=== PATIENT | male | born 1965 | race American Indian/Alaskan Native ===

== ENCOUNTER 2021-01-28 16:18 | Emergency (ER) | payer OTHER ==
[2021-01-28] MEDS ORDERED: Sodium Chloride 0.9% 1,000 ML IV STA (16:40)
[2021-01-28] MEDS ORDERED: Pantoprazole 80 MG in Sodium Chloride 0.9% 20 ML IVPUSH ONE (16:52)
[2021-01-28] MEDS ORDERED: cefTRIAXone 1 GM in Premix Bag 1 BAG IV ONE ×2 (17:08→19:27)
--- NOTE | 2021-01-28 17:29 | PCM.EKG ---
#1 Interpretation EKG Date: 01/28/21 Time: 16:48 Rhythm: NSR Rate (Beats/Min): 119 [place]: Normal P-Wave: Present QRS: Normal ST-T: Normal QT: Normal Comparison: NA - No Prior EKG EKG Interpretation Comments: Sinus Rhythm
[2021-01-28 18:16] LABS: BLOOD UREA NITROGEN,BUN 8 mg/dL (7.0-18.0); CARBON DIOXIDE,CO2 20.9 mmol/L (21.0-32.0); CHLORIDE,CL 101 mmol/L (98-107); GLUCOSE RANDOM 98 mg/dL (74-106); LIPASE 233 U/L (73-393); POTASSIUM,K 4.1 mmol/L (3.5-5.1); SODIUM,NA 138 mmol/L (136-148)
--- NOTE | 2021-01-28 18:19 | US ---
CLINICAL HISTORY: Abdominal pain FINDINGS: Cirrhotic morphology of the liver. Large volume ascites. No liver lesion seen. The visualized portions of the pancreas appears normal. Sludge in the gallbladder. The gallbladder wall measures 4 mm in thickness. The common bile duct measures 5 mm in size within the [place] hepatis. The kidneys appear symmetric. The right kidney measures 12 cm in length. Kidney appears unremarkable. IMPRESSION: Cirrhotic morphology liver. Large volume ascites. Sludge in the gallbladder. Nonspecific gallbladder wall thickening measuring 4 millimeters Dictated by Vandana Mccarthy MD @ 01/28/2021 6:19:13 PM (Electronically Signed)
[2021-01-28] MEDS ORDERED: Iopamidol 755 MG/ML 500 ML Multipack Bottle IVPUSH STA (18:37)
[2021-01-28] MEDS ORDERED: Sodium Chloride 0.9% 1,000 ML IV ONE (18:45)
[2021-01-28] MEDS ORDERED: LORazepam 2 MG/ML SDV IVPUSH ONE (18:53)
--- NOTE | 2021-01-28 19:15 | EDM.PDOC ---
<Burak Staley - Last Filed: 01/29/21 06:59> ED HPI GENERAL MEDICAL PROBLEM - General Chief Complaint: Respiratory Problem Stated Complaint: HARD TO BREATHE PRESSURE ON HEART Time Seen by Provider: 01/28/21 16:33 - Related Data Allergies Allergy/AdvReac Type Severity Reaction Status Date / Time No Known Allergies Allergy Verified 01/28/21 16:37 Home Meds: Home Meds . [No Known Home Meds] 01/28/21 [History] Course - Re-Assessments/Exams Free Text/Narrative Re-Assessment/Exam: 01/29/21 06:59 Patient lactate went down to 6 but still elevated. His hemoglobin is downtrending from 9.4- to 8.4. Patient still slightly tacky does not really have any withdrawal symptoms. He was guaiac negative earlier from the PAs note however he said he is having dark stool now. Patient still pending transportation. Departure - Departure Disposition: Against Medical Advice 07 Clinical Impression: Acute liver failure, Lactic acidosis - Discharge Information Instructions: Liver Failure Referrals: Zoie Zavala MD [Primary Care Provider] - Forms: ED Department Discharge <Michele Mejia - Last Filed: 01/29/21 12:29> ED HPI GENERAL MEDICAL PROBLEM - History of Present Illness INITIAL COMMENTS - FREE TEXT/NARRATIVE: Patient was signed out to me by Dr. Staley at 7 AM pending transfer. I promptly performed a detailed physical examination and my examination was done after ED treatments were initiated by the signout provider. Patient has been under the care of previous provider up until this point. We did contact the transfer center to evaluate for possible bed placement at 7 AM. At this time as discussed in prior note by APRIL Cunningham there are no beds available. Next update will be around 10 AM. Given the patient has been in the emergency department for over 12 hours at this point I do believe that delaying further care is hindering the patient therefore I did discuss bedside paracentesis with the patient. He was amenable to this plan. PARACENTESIS PROCEDURE NOTE Performed by: Myself Consent: Written consent obtained. Risks and benefits: risks, benefits and alternatives were discussed Consent given by: patient Patient understanding: patient states understanding of the procedure being performed Patient consent: the patient's understanding of the procedure matches consent given Procedure consent: procedure consent matches procedure scheduled Required items: required blood products, implants, devices, and special equipment available Patient identity confirmed: arm band and verbally with patient Time out: Immediately prior to procedure a "time out" was called to verify the correct patient, procedure, equipment, technical support analyst and site/side marked as required. Utilizing ultrasound the best fluid pocket was identified as left lower quadrant Preparation: Patient was prepped and draped in the usual sterile fashion. Local anesthesia used: yes Anesthesia: local infiltration Local anesthetic: lidocaine 1% without epinephrine Anesthetic total: 4 ml Patient sedated: no Patient tolerance: Patient tolerated the procedure well with no immediate complications. Comments: 4 liters removed without complication and studies were sent to lab. Laboratory: Fluid cell count reveals a polymorphonuclear cell count of less than 250 indicating no evidence of SBP. We did send off fluid culture and Gram stain which are currently pending. Patient's repeat lactic acid is 4.1. Given that there is no need for further transfer for large-volume paracentesis given that we completed here in the emergency department I did contact Dr. Harman for admission. He stated that he would come down and evaluate the patient. While awaiting evaluation by Dr. Harman the patient stated that he wanted to leave. The patient was apprised of the potential risks of leaving the hospital AGAINST MEDICAL ADVICE. They include serious complications, permanent disability, and . At the time of my interview with the patient, the patient was alert, oriented, and capable. I urged the patient to return to the hospital as soon as possible to complete their evaluation and treatment. The patient left without paperwork. Patient sisters were at bedside were encouraging patient to stay however patient continued to want to leave AMA. The patients sisters did assist him and the patient left AMA. ED ROS GENERAL - Review of Systems Review Of Systems: See Below ED EXAM, GENERAL - Physical Exam Exam: See Below Departure - Departure Time of Disposition: 12:29 Condition: Fair - Discharge Information *PRESCRIPTION DRUG MONITORING PROGRAM REVIEWED*: No *COPY OF PRESCRIPTION DRUG MONITORING REPORT IN PATIENT RAMAN: No <Valery Cunningham - Last Filed: 01/30/21 21:53> ED HPI GENERAL MEDICAL PROBLEM - General Source of Information: Reports: Patient History Limitations: Reports: No Limitations - History of Present Illness INITIAL COMMENTS - FREE TEXT/NARRATIVE: HISTORY AND PHYSICAL: History of present illness: Patient is a 55-year-old male, with a history of chronic alcohol use, coronary artery disease, who presents emergency room today with concern of abdominal pain/swelling over the past several days. Chills off and on at home but has not checked for a fever and dark stools. Patient states that he does drink approximately 12 drinks/beers daily and states that he does depend on alcohol and does get the shakes if he stops drinking. Patient states his last beverage was last night. Patient states he started noticing his abdominal pain and distention has become more prominent. States that he has not taken anything for his symptoms. Patient states that his abdomen is still bloated it does make it difficult to take deep breaths and feels like it is squishing his lungs according to patient. Patient states he also uses marijuana but denies any other substance use. Patient denies fever, chills, chest pain, or cough. Denies headache, neck stiff ness, change in vision, syncope, or near syncope. Denies nausea, vomiting, diarrhea, constipation, or dysuria. Has not noted any blood in urine or stool. Patient has been eating and drinking appropriately. Review of systems: As per history of present illness and below otherwise all systems reviewed and negative. Past medical history: As per history of present illness and as reviewed below otherwise noncontributory. Surgical history: As per history of present illness and as reviewed below otherwise noncontributory. Social history: See social history for further information Family history: As per history of present illness and as reviewed below otherwise noncontributory. Physical exam: General: Patient is alert, oriented, and in no acute distress. Patient laying comfortably on exam table. Patient is tachycardic 134 on exam and mildly hypertensive 144/98, otherwise vitally stable and reviewed by me. HEENT: Positive scleral icterus .atraumatic, normocephalic, pupils equal and reactive bilaterally, negative for conjunctival pallor, mucous membranes dry, throat clear, neck supple, nontender, trachea midline. No drooling or trismus noted. No meningeal signs. No hot potato voice noted. Lungs: Clear to auscultation, breath sounds equal bilaterally, chest nontender. Heart: S1S2, regular rate and rhythm without overt murmur Abdomen: Abdomen is diffusely tender and distended with ascites. Negative for masses or hepatosplenomegaly. Negative for costovertebral tenderness. Pelvis: Stable nontender. Genitourinary: Deferred. Rectal: Microfilm Technician at bedside, Alana Carpio RN. Hemoccult negative. No obvious rashes, hemorrhoids, or lesions noted. Rectal tone intact. Skin: Jaundiced, otherwise, intact, warm, dry. No lesions or rashes noted. Extremities: Atraumatic, negative for cords or calf pain. Neurovascular unremarkable. Neuro: Awake, alert, oriented. Cranial nerves II through XII unremarkable. Cerebellum unremarkable. Motor and sensory unremarkable throughout. Exam nonfocal. Notes: Patient is a 55-year-old male, with a history of chronic alcohol use and coronary artery disease, who presents emergency room today with concern of worsening abdominal pain and distention/swelling causing the sensation of not being able to take a deep breath over the past several days. Upon arrival to the ED, patient is tachycardic 130s on exam and mildly hypertensive. Patient does not have any evidence for withdrawal at this time and CIWA 0 at this time, however, do anticipate that as the longer patient stays here, expect withdrawal symptoms. Patient also has remarkable abdominal distention and ascites on exam with diffuse tenderness. At this time, will provide patient with Rocephin IV for presumed SBP. Will wait for platelets and INR before consideration for diagnostic paracentesis. Will obtain cardiac evaluation and basic lab work, right upper quadrant ultrasound, abdominal pelvic CT scan and provide fluids. See Dr. Mejia's dictation for specific EKG interpretation. However, sinus tachycardia with rate of 119 without STEMI or acute changes. CBC does show decreased red blood cell count at 3.14, decreased hemoglobin and hematocrit at 9.4 and 28.5 respectively. Patient is significantly thrombocytopenic with a platelet count of 44. Due to this, we will not obtain a diagnostic paracentesis and will treat empirically for SBP. Otherwise mild derangements of CBC unremarkable. INR is also elevated at 1.96. CMP does show carbon dioxide decreased at 20.9, significant elevation of lactic acid at 7.6. Total bilirubin elevated at 5.7 and AST elevation of 89. Lipase within normal limits. Troponin negative. Corrected calcium for albumin is 8.2. Patient's alcohol level today is 140. COVID-19 is negative. Ua clear of infection. Right upper quadrant ultrasound does show cirrhotic morphology of the liver with large volume ascites. Sludge in the gallbladder. Nonspecific gallbladder wall thickening measuring 4 mm. CBD measurement is at 5 mm. Upon reevaluation of patient, he does start to get shaky, HR improved to 115 but does become more hypertensive 173/98. Provide Ativan at this time for presumed alcohol withdrawal. Repeat H&H is stable. Abdominal pelvic CT scan shows cirrhotic liver with diffuse hepatic steatosis. Findings of portal hypertension including recannulization of the umbilical vein, paraesophageal varices, and large amount of ascites. Multiple tiny low attenuated lesions in the liver are too small to characterize. Differential considered would be cysts, regenerative nodules, metastatic disease. Moderate diffuse bladder wall thickening. Correlate with urinalysis. (All incidental findings today of imaging discussed with patient and the importance to have this followed up at a later date with his primary care provider.) I did call and speak to the hospitalist on-call, Dr. Harman, and thoroughly discussed patient's case. Due to the concern of patient's low platelets and elevated INR, he feels that patient requires a large volume paracentesis and due to high risk for bleeding / complications of large-volume paracentesis, does not feel comfortable admitting this patient to our facility and recommending transfer. Due to the difficulty with transferring at this time, I did call the [facility] at [facility] to help in the transfer process and they will return my call for possible accepting facility. 21:30: I did receive a call from the [place] transfer center that all facilities and [place] do not have any beds available. This includes [facility], [facility], [facility], [facility], [facility], and [facility]. They have also contacted all facilities in [place], including [facility], [facility], and multiple other facilities and state that there are no available beds in the state [facility]. They are currently working on getting a bed in [place] and then plan to look for beds in [place] and will call back for further updates. Dr. Staley has assumed care of patient and will follow remaining disposition for patient at 21:40 and made aware of transfer difficulties. Diagnostics: EKG, CBC, CMP, PT/INR, troponin, lipase, lactic acid, blood cultures x2, alcohol level, COVID-19, type and screen, right upper quadrant ultrasound, abdominal pelvic CT scan, Repeat H&H Therapeutics: NS, Rocephin, Protonix, Ativan Impression: Acute liver failure Ascites Thrombocytopenia Normocytic anemia, stable Chronic alcohol use Plan: Definitive disposition and diagnosis as appropriate pending reevaluation and review of above. abdomen Pain Score (Numeric/FACES): 2 Past Medical History HEENT History: Reports: None Cardiovascular History: Reports: RI Respiratory History: Reports: None Gastrointestinal History: Reports: None Genitourinary History: Reports: None Musculoskeletal History: Reports: None Neurological History: Reports: None Psychiatric History: Reports: None Endocrine/Metabolic History: Reports: None Hematologic History: Reports: None Immunologic History: Reports: None Oncologic (Cancer) History: Reports: None Dermatologic History: Reports: None - Infectious Disease History Infectious Disease History: Reports: None - Past Surgical History Head Surgeries/Procedures: Reports: None HEENT Surgical History: Reports: None Cardiovascular Surgical History: Reports: None Respiratory Surgical History: Reports: None GI Surgical History: Reports: None Male Surgical History: Reports: None Endocrine Surgical History: Reports: None Neurological Surgical History: Reports: None Musculoskeletal Surgical History: Reports: None Oncologic Surgical History: Reports: None Dermatological Surgical History: Reports: None Social & Family History - Family History Family Medical History: No Pertinent Family History - Tobacco Use Tobacco Use Status *Q: Never Tobacco User Second Hand Smoke Exposure: No - Caffeine Use Caffeine Use: Reports: None - Alcohol Use Days Per Week of Alcohol Use: 7 Number of Drinks Per Day: 12 Total Drinks Per Week: 84 - Recreational Drug Use Recreational Drug Use: Yes Recreational Drug Type: Reports: Marijuana/Hashish Recreational Drug Use Frequency: Daily ED ROS GENERAL - Review of Systems Review Of Systems: Comprehensive ROS is negative, except as noted in HPI. ED EXAM, GENERAL - Physical Exam Exam: See Below (see dictation) Course - Vital Signs Last Recorded V/S: Last Vital Signs Temp 98.2 F 01/29/21 10:50 Pulse 124 H 01/29/21 10:50 Resp 25 H 01/29/21 10:50 BP 122/68 01/29/21 10:50 Pulse Ox 97 01/29/21 10:50 - Orders/Labs/Meds Labs: Laboratory Tests 01/28/21 01/28/21 01/28/21 Range/Units 16:50 16:55 17:39 WBC 5.40 (4.0-11.0) K/uL RBC 3.14 L (4.50-5.90) M/uL Hgb 9.4 L (13.0-17.0) g/dL Hct 28.5 L (38.0-50.0) % MCV 90.8 (80.0-98.0) fL MCH 29.9 (27.0-32.0) pg MCHC 33.0 (31.0-37.0) g/dL RDW Std Deviation 49.6 (28.0-62.0) fl RDW Coeff of Alex 15 (11.0-15.0) % Plt Count 44 L (150-400) K/uL MPV 10.10 (7.40-12.00) fL Neut % (Auto) 69.9 (48.0-80.0) % Lymph % (Auto) 10.4 L (16.0-40.0) % Ross % (Auto) 17.6 H (0.0-15.0) % Eos % (Auto) 0.4 (0.0-7.0) % Baso % (Auto) 1.7 H (0.0-1.5) % Neut # (Auto) 3.8 (1.4-5.7) K/uL Lymph # (Auto) 0.6 (0.6-2.4) K/uL Ross # (Auto) 1.0 H (0.0-0.8) K/uL Eos # (Auto) 0.0 (0.0-0.7) K/uL Baso # (Auto) 0.1 (0.0-0.1) K/uL Nucleated RBC % 0.0 /100WBC Nucleated RBCs # 0 K/uL INR APTT (18.6-31.3) SEC Fibrinogen (215-411) mg/dL Sodium (136-148) mmol/L Potassium (3.5-5.1) mmol/L Chloride (98-107) mmol/L Carbon Dioxide (21.0-32.0) mmol/L BUN (7.0-18.0) mg/dL Creatinine (0.8-1.3) mg/dL Est Cr Clr Drug Dosing mL/min Estimated GFR (MDRD) ml/min Glucose (74-106) mg/dL Lactic Acid (0.4-2.0) mmol/L Calcium (8.5-10.1) mg/dL Total Bilirubin (0.2-1.0) mg/dL AST (15-37) IU/L ALT (14-63) IU/L Alkaline Phosphatase (46-116) U/L Ammonia (19-54) ug/dL Troponin I < 0.050 (0.000-0.056) ng/mL Total Protein (6.4-8.2) g/dL Albumin (3.4-5.0) g/dL Globulin (2.6-4.0) g/dL Albumin/Globulin Ratio (0.9-1.6) Lipase (73-393) U/L Urine Color Urine Appearance Urine pH (5.0-8.0) Ur Specific [place] (1.001-1.035) Urine Protein (NEGATIVE) mg/dL Urine Glucose (UA) (NEGATIVE) mg/dL Urine Ketones (NEGATIVE) mg/dL Urine Occult Blood (NEGATIVE) Urine Nitrite (NEGATIVE) Urine Bilirubin (NEGATIVE) Urine Urobilinogen (<2.0) EU/dL Ur Leukocyte Esterase (NEGATIVE) Urine RBC (0-2/HPF) Urine WBC (0-5/HPF) Ur Epithelial Cells (NONE-FEW) Urine Bacteria (NEGATIVE) Fluid Type Fluid Color Fluid Appearance Fluid WBC /uL Fluid RBC /uL Fluid Mononuclear Cell % Fl Polymorphonucl Cell % Fluid Glucose mg/dL Fluid Total Protein g/dL Fluid Albumin g/dL Ethyl Alcohol mg/dL SARS-CoV-2 RNA (DAVID) NEGATIVE (NEGATIVE) Blood Type Antibody Screen Crossmatch 01/28/21 01/28/21 01/28/21 Range/Units 17:39 17:39 17:39 WBC (4.0-11.0) K/uL RBC (4.50-5.90) M/uL Hgb (13.0-17.0) g/dL Hct (38.0-50.0) % MCV (80.0-98.0) fL MCH (27.0-32.0) pg MCHC (31.0-37.0) g/dL RDW Std Deviation (28.0-62.0) fl RDW Coeff of Alex (11.0-15.0) % Plt Count (150-400) K/uL MPV (7.40-12.00) fL Neut % (Auto) (48.0-80.0) % Lymph % (Auto) (16.0-40.0) % Ross % (Auto) (0.0-15.0) % Eos % (Auto) (0.0-7.0) % Baso % (Auto) (0.0-1.5) % Neut # (Auto) (1.4-5.7) K/uL Lymph # (Auto) (0.6-2.4) K/uL Ross # (Auto) (0.0-0.8) K/uL Eos # (Auto) (0.0-0.7) K/uL Baso # (Auto) (0.0-0.1) K/uL Nucleated RBC % /100WBC Nucleated RBCs # K/uL INR APTT (18.6-31.3) SEC Fibrinogen (215-411) mg/dL Sodium 138 (136-148) mmol/L Potassium 4.1 (3.5-5.1) mmol/L Chloride 101 (98-107) mmol/L Carbon Dioxide 20.9 L (21.0-32.0) mmol/L BUN 8 (7.0-18.0) mg/dL Creatinine 1.1 (0.8-1.3) mg/dL Est Cr Clr Drug Dosing 80.19 mL/min Estimated GFR (MDRD) > 60.0 ml/min Glucose 98 (74-106) mg/dL Lactic Acid 7.6 H* (0.4-2.0) mmol/L Calcium 7.2 L (8.5-10.1) mg/dL Total Bilirubin 5.7 H (0.2-1.0) mg/dL AST 89 H (15-37) IU/L ALT 24 (14-63) IU/L Alkaline Phosphatase 107 (46-116) U/L Ammonia 37 (19-54) ug/dL Troponin I (0.000-0.056) ng/mL Total Protein 7.1 (6.4-8.2) g/dL Albumin 2.1 L (3.4-5.0) g/dL Globulin 5.0 H (2.6-4.0) g/dL Albumin/Globulin Ratio 0.4 L (0.9-1.6) Lipase 233 (73-393) U/L Urine Color Urine Appearance Urine pH (5.0-8.0) Ur Specific [place] (1.001-1.035) Urine Protein (NEGATIVE) mg/dL Urine Glucose (UA) (NEGATIVE) mg/dL Urine Ketones (NEGATIVE) mg/dL Urine Occult Blood (NEGATIVE) Urine Nitrite (NEGATIVE) Urine Bilirubin (NEGATIVE) Urine Urobilinogen (<2.0) EU/dL Ur Leukocyte Esterase (NEGATIVE) Urine RBC (0-2/HPF) Urine WBC (0-5/HPF) Ur Epithelial Cells (NONE-FEW) Urine Bacteria (NEGATIVE) Fluid Type Fluid Color Fluid Appearance Fluid WBC /uL Fluid RBC /uL Fluid Mononuclear Cell % Fl Polymorphonucl Cell % Fluid Glucose mg/dL Fluid Total Protein g/dL Fluid Albumin g/dL Ethyl Alcohol 140 mg/dL SARS-CoV-2 RNA (DAVID) (NEGATIVE) Blood Type Antibody Screen Crossmatch 01/28/21 01/28/21 01/28/21 Range/Units 17:39 17:45 19:49 WBC (4.0-11.0) K/uL RBC (4.50-5.90) M/uL Hgb (13.0-17.0) g/dL Hct (38.0-50.0) % MCV (80.0-98.0) fL MCH (27.0-32.0) pg MCHC (31.0-37.0) g/dL RDW Std Deviation (28.0-62.0) fl RDW Coeff of Alex (11.0-15.0) % Plt Count (150-400) K/uL MPV (7.40-12.00) fL Neut % (Auto) (48.0-80.0) % Lymph % (Auto) (16.0-40.0) % Ross % (Auto) (0.0-15.0) % Eos % (Auto) (0.0-7.0) % Baso % (Auto) (0.0-1.5) % Neut # (Auto) (1.4-5.7) K/uL Lymph # (Auto) (0.6-2.4) K/uL Ross # (Auto) (0.0-0.8) K/uL Eos # (Auto) (0.0-0.7) K/uL Baso # (Auto) (0.0-0.1) K/uL Nucleated RBC % /100WBC Nucleated RBCs # K/uL INR 1.96 APTT (18.6-31.3) SEC Fibrinogen (215-411) mg/dL Sodium (136-148) mmol/L Potassium (3.5-5.1) mmol/L Chloride (98-107) mmol/L Carbon Dioxide (21.0-32.0) mmol/L BUN (7.0-18.0) mg/dL Creatinine (0.8-1.3) mg/dL Est Cr Clr Drug Dosing mL/min Estimated GFR (MDRD) ml/min Glucose (74-106) mg/dL Lactic Acid (0.4-2.0) mmol/L Calcium (8.5-10.1) mg/dL Total Bilirubin (0.2-1.0) mg/dL AST (15-37) IU/L ALT (14-63) IU/L Alkaline Phosphatase (46-116) U/L Ammonia (19-54) ug/dL Troponin I (0.000-0.056) ng/mL Total Protein (6.4-8.2) g/dL Albumin (3.4-5.0) g/dL Globulin (2.6-4.0) g/dL Albumin/Globulin Ratio (0.9-1.6) Lipase (73-393) U/L Urine Color YELLOW Urine Appearance HAZY Urine pH 6.0 (5.0-8.0) Ur Specific [place] <= 1.005 (1.001-1.035) Urine Protein NEGATIVE (NEGATIVE) mg/dL Urine Glucose (UA) NEGATIVE (NEGATIVE) mg/dL Urine Ketones 15 H (NEGATIVE) mg/dL Urine Occult Blood TRACE-INTACT H (NEGATIVE) Urine Nitrite NEGATIVE (NEGATIVE) Urine Bilirubin NEGATIVE (NEGATIVE) Urine Urobilinogen 0.2 (<2.0) EU/dL Ur Leukocyte Esterase NEGATIVE (NEGATIVE) Urine RBC 0-1 (0-2/HPF) Urine WBC 0-1 (0-5/HPF) Ur Epithelial Cells RARE (NONE-FEW) Urine Bacteria RARE (NEGATIVE) Fluid Type Fluid Color Fluid Appearance Fluid WBC /uL Fluid RBC /uL Fluid Mononuclear Cell % Fl Polymorphonucl Cell % Fluid Glucose mg/dL Fluid Total Protein g/dL Fluid Albumin g/dL Ethyl Alcohol mg/dL SARS-CoV-2 RNA (DAVID) (NEGATIVE) Blood Type A POSITIVE Antibody Screen NEGATIVE Crossmatch See Detail 01/28/21 01/28/21 01/29/21 Range/Units 20:25 22:39 05:32 WBC (4.0-11.0) K/uL RBC (4.50-5.90) M/uL Hgb 9.2 L (13.0-17.0) g/dL Hct 27.4 L (38.0-50.0) % MCV (80.0-98.0) fL MCH (27.0-32.0) pg MCHC (31.0-37.0) g/dL RDW Std Deviation (28.0-62.0) fl RDW Coeff of Alex (11.0-15.0) % Plt Count (150-400) K/uL MPV (7.40-12.00) fL Neut % (Auto) (48.0-80.0) % Lymph % (Auto) (16.0-40.0) % Ross % (Auto) (0.0-15.0) % Eos % (Auto) (0.0-7.0) % Baso % (Auto) (0.0-1.5) % Neut # (Auto) (1.4-5.7) K/uL Lymph # (Auto) (0.6-2.4) K/uL Ross # (Auto) (0.0-0.8) K/uL Eos # (Auto) (0.0-0.7) K/uL Baso # (Auto) (0.0-0.1) K/uL Nucleated RBC % /100WBC Nucleated RBCs # K/uL INR APTT (18.6-31.3) SEC Fibrinogen (215-411) mg/dL Sodium 139 (136-148) mmol/L Potassium 3.7 (3.5-5.1) mmol/L Chloride 104 (98-107) mmol/L Carbon Dioxide 18.8 L (21.0-32.0) mmol/L BUN 7 (7.0-18.0) mg/dL Creatinine 0.9 (0.8-1.3) mg/dL Est Cr Clr Drug Dosing 98.01 mL/min Estimated GFR (MDRD) > 60.0 ml/min Glucose 97 (74-106) mg/dL Lactic Acid 8.1 H* (0.4-2.0) mmol/L Calcium 6.9 L (8.5-10.1) mg/dL Total Bilirubin 4.7 H (0.2-1.0) mg/dL AST 81 H (15-37) IU/L ALT 24 (14-63) IU/L Alkaline Phosphatase 94 (46-116) U/L Ammonia (19-54) ug/dL Troponin I (0.000-0.056) ng/mL Total Protein 6.4 (6.4-8.2) g/dL Albumin 1.9 L (3.4-5.0) g/dL Globulin 4.5 H (2.6-4.0) g/dL Albumin/Globulin Ratio 0.4 L (0.9-1.6) Lipase (73-393) U/L Urine Color Urine Appearance Urine pH (5.0-8.0) Ur Specific [place] (1.001-1.035) Urine Protein (NEGATIVE) mg/dL Urine Glucose (UA) (NEGATIVE) mg/dL Urine Ketones (NEGATIVE) mg/dL Urine Occult Blood (NEGATIVE) Urine Nitrite (NEGATIVE) Urine Bilirubin (NEGATIVE) Urine Urobilinogen (<2.0) EU/dL Ur Leukocyte Esterase (NEGATIVE) Urine RBC (0-2/HPF) Urine WBC (0-5/HPF) Ur Epithelial Cells (NONE-FEW) Urine Bacteria (NEGATIVE) Fluid Type Fluid Color Fluid Appearance Fluid WBC /uL Fluid RBC /uL Fluid Mononuclear Cell % Fl Polymorphonucl Cell % Fluid Glucose mg/dL Fluid Total Protein g/dL Fluid Albumin g/dL Ethyl Alcohol mg/dL SARS-CoV-2 RNA (DAVID) (NEGATIVE) Blood Type Antibody Screen Crossmatch 01/29/21 01/29/21 01/29/21 Range/Units 05:32 06:25 06:25 WBC 5.29 (4.0-11.0) K/uL RBC 2.81 L (4.50-5.90) M/uL Hgb 8.4 L (13.0-17.0) g/dL Hct 25.3 L (38.0-50.0) % MCV 90.0 (80.0-98.0) fL MCH 29.9 (27.0-32.0) pg MCHC 33.2 (31.0-37.0) g/dL RDW Std Deviation 49.6 (28.0-62.0) fl RDW Coeff of Alex 15 (11.0-15.0) % Plt Count 48 L (150-400) K/uL MPV 10.30 (7.40-12.00) fL Neut % (Auto) (48.0-80.0) % Lymph % (Auto) (16.0-40.0) % Ross % (Auto) (0.0-15.0) % Eos % (Auto) (0.0-7.0) % Baso % (Auto) (0.0-1.5) % Neut # (Auto) (1.4-5.7) K/uL Lymph # (Auto) (0.6-2.4) K/uL Ross # (Auto) (0.0-0.8) K/uL Eos # (Auto) (0.0-0.7) K/uL Baso # (Auto) (0.0-0.1) K/uL Nucleated RBC % 0.0 /100WBC Nucleated RBCs # 0 K/uL INR APTT 30.3 (18.6-31.3) SEC Fibrinogen (215-411) mg/dL Sodium (136-148) mmol/L Potassium (3.5-5.1) mmol/L Chloride (98-107) mmol/L Carbon Dioxide (21.0-32.0) mmol/L BUN (7.0-18.0) mg/dL Creatinine (0.8-1.3) mg/dL Est Cr Clr Drug Dosing mL/min Estimated GFR (MDRD) ml/min Glucose (74-106) mg/dL Lactic Acid 6.1 H* (0.4-2.0) mmol/L Calcium (8.5-10.1) mg/dL Total Bilirubin (0.2-1.0) mg/dL AST (15-37) IU/L ALT (14-63) IU/L Alkaline Phosphatase (46-116) U/L Ammonia (19-54) ug/dL Troponin I (0.000-0.056) ng/mL Total Protein (6.4-8.2) g/dL Albumin (3.4-5.0) g/dL Globulin (2.6-4.0) g/dL Albumin/Globulin Ratio (0.9-1.6) Lipase (73-393) U/L Urine Color Urine Appearance Urine pH (5.0-8.0) Ur Specific [place] (1.001-1.035) Urine Protein (NEGATIVE) mg/dL Urine Glucose (UA) (NEGATIVE) mg/dL Urine Ketones (NEGATIVE) mg/dL Urine Occult Blood (NEGATIVE) Urine Nitrite (NEGATIVE) Urine Bilirubin (NEGATIVE) Urine Urobilinogen (<2.0) EU/dL Ur Leukocyte Esterase (NEGATIVE) Urine RBC (0-2/HPF) Urine WBC (0-5/HPF) Ur Epithelial Cells (NONE-FEW) Urine Bacteria (NEGATIVE) Fluid Type Fluid Color Fluid Appearance Fluid WBC /uL Fluid RBC /uL Fluid Mononuclear Cell % Fl Polymorphonucl Cell % Fluid Glucose mg/dL Fluid Total Protein g/dL Fluid Albumin g/dL Ethyl Alcohol mg/dL SARS-CoV-2 RNA (DAVID) (NEGATIVE) Blood Type Antibody Screen Crossmatch 01/29/21 01/29/21 01/29/21 Range/Units 06:25 09:15 09:15 WBC (4.0-11.0) K/uL RBC (4.50-5.90) M/uL Hgb (13.0-17.0) g/dL Hct (38.0-50.0) % MCV (80.0-98.0) fL MCH (27.0-32.0) pg MCHC (31.0-37.0) g/dL RDW Std Deviation (28.0-62.0) fl RDW Coeff of Alex (11.0-15.0) % Plt Count (150-400) K/uL MPV (7.40-12.00) fL Neut % (Auto) (48.0-80.0) % Lymph % (Auto) (16.0-40.0) % Ross % (Auto) (0.0-15.0) % Eos % (Auto) (0.0-7.0) % Baso % (Auto) (0.0-1.5) % Neut # (Auto) (1.4-5.7) K/uL Lymph # (Auto) (0.6-2.4) K/uL Ross # (Auto) (0.0-0.8) K/uL Eos # (Auto) (0.0-0.7) K/uL Baso # (Auto) (0.0-0.1) K/uL Nucleated RBC % /100WBC Nucleated RBCs # K/uL INR APTT (18.6-31.3) SEC Fibrinogen 141 L (215-411) mg/dL Sodium (136-148) mmol/L Potassium (3.5-5.1) mmol/L Chloride (98-107) mmol/L Carbon Dioxide (21.0-32.0) mmol/L BUN (7.0-18.0) mg/dL Creatinine (0.8-1.3) mg/dL Est Cr Clr Drug Dosing mL/min Estimated GFR (MDRD) ml/min Glucose (74-106) mg/dL Lactic Acid (0.4-2.0) mmol/L Calcium (8.5-10.1) mg/dL Total Bilirubin (0.2-1.0) mg/dL AST (15-37) IU/L ALT (14-63) IU/L Alkaline Phosphatase (46-116) U/L Ammonia (19-54) ug/dL Troponin I (0.000-0.056) ng/mL Total Protein (6.4-8.2) g/dL Albumin (3.4-5.0) g/dL Globulin (2.6-4.0) g/dL Albumin/Globulin Ratio (0.9-1.6) Lipase (73-393) U/L Urine Color Urine Appearance Urine pH (5.0-8.0) Ur Specific [place] (1.001-1.035) Urine Protein (NEGATIVE) mg/dL Urine Glucose (UA) (NEGATIVE) mg/dL Urine Ketones (NEGATIVE) mg/dL Urine Occult Blood (NEGATIVE) Urine Nitrite (NEGATIVE) Urine Bilirubin (NEGATIVE) Urine Urobilinogen (<2.0) EU/dL Ur Leukocyte Esterase (NEGATIVE) Urine RBC (0-2/HPF) Urine WBC (0-5/HPF) Ur Epithelial Cells (NONE-FEW) Urine Bacteria (NEGATIVE) Fluid Type PER PER Fluid Color YELLOW Fluid Appearance CLEAR Fluid WBC 91 /uL Fluid RBC < 3000 /uL Fluid Mononuclear Cell 66 % Fl Polymorphonucl Cell 34 % Fluid Glucose 108 mg/dL Fluid Total Protein 1.0 g/dL Fluid Albumin 0.3 g/dL Ethyl Alcohol mg/dL SARS-CoV-2 RNA (DAVID) (NEGATIVE) Blood Type Antibody Screen Crossmatch 01/29/21 Range/Units 10:30 WBC (4.0-11.0) K/uL RBC (4.50-5.90) M/uL Hgb (13.0-17.0) g/dL Hct (38.0-50.0) % MCV (80.0-98.0) fL MCH (27.0-32.0) pg MCHC (31.0-37.0) g/dL RDW Std Deviation (28.0-62.0) fl RDW Coeff of Alex (11.0-15.0) % Plt Count (150-400) K/uL MPV (7.40-12.00) fL Neut % (Auto) (48.0-80.0) % Lymph % (Auto) (16.0-40.0) % Ross % (Auto) (0.0-15.0) % Eos % (Auto) (0.0-7.0) % Baso % (Auto) (0.0-1.5) % Neut # (Auto) (1.4-5.7) K/uL Lymph # (Auto) (0.6-2.4) K/uL Ross # (Auto) (0.0-0.8) K/uL Eos # (Auto) (0.0-0.7) K/uL Baso # (Auto) (0.0-0.1) K/uL Nucleated RBC % /100WBC Nucleated RBCs # K/uL INR APTT (18.6-31.3) SEC Fibrinogen (215-411) mg/dL Sodium (136-148) mmol/L Potassium (3.5-5.1) mmol/L Chloride (98-107) mmol/L Carbon Dioxide (21.0-32.0) mmol/L BUN (7.0-18.0) mg/dL Creatinine (0.8-1.3) mg/dL Est Cr Clr Drug Dosing mL/min Estimated GFR (MDRD) ml/min Glucose (74-106) mg/dL Lactic Acid 4.1 H* (0.4-2.0) mmol/L Calcium (8.5-10.1) mg/dL Total Bilirubin (0.2-1.0) mg/dL AST (15-37) IU/L ALT (14-63) IU/L Alkaline Phosphatase (46-116) U/L Ammonia (19-54) ug/dL Troponin I (0.000-0.056) ng/mL Total Protein (6.4-8.2) g/dL Albumin (3.4-5.0) g/dL Globulin (2.6-4.0) g/dL Albumin/Globulin Ratio (0.9-1.6) Lipase (73-393) U/L Urine Color Urine Appearance Urine pH (5.0-8.0) Ur Specific [place] (1.001-1.035) Urine Protein (NEGATIVE) mg/dL Urine Glucose (UA) (NEGATIVE) mg/dL Urine Ketones (NEGATIVE) mg/dL Urine Occult Blood (NEGATIVE) Urine Nitrite (NEGATIVE) Urine Bilirubin (NEGATIVE) Urine Urobilinogen (<2.0) EU/dL Ur Leukocyte Esterase (NEGATIVE) Urine RBC (0-2/HPF) Urine WBC (0-5/HPF) Ur Epithelial Cells (NONE-FEW) Urine Bacteria (NEGATIVE) Fluid Type Fluid Color Fluid Appearance Fluid WBC /uL Fluid RBC /uL Fluid Mononuclear Cell % Fl Polymorphonucl Cell % Fluid Glucose mg/dL Fluid Total Protein g/dL Fluid Albumin g/dL Ethyl Alcohol mg/dL SARS-CoV-2 RNA (DAVID) (NEGATIVE) Blood Type Antibody Screen Crossmatch Meds: Medications Discontinued Medications Generic Name Dose Route Start Last Admin Trade Name Mirzaq PRN Reason Stop Dose Admin Calcium Gluconate 1 gm 01/29/21 06:30 01/29/21 06:46 Calcium Gluconate 10% 1 Gm/10 Ml Sdv IVPUSH 01/29/21 06:31 1 gm ONETIME ONE Administration Chlordiazepoxide HCl 50 mg 01/28/21 22:48 01/28/21 23:30 Chlordiazepoxide 25 Mg Cap PO 01/28/21 22:49 50 mg ONETIME ONE Administration Sodium Chloride 1,000 mls @ 999 mls/hr 01/28/21 16:40 01/28/21 16:54 Normal Saline IV 01/28/21 17:40 999 mls/hr STAT STA Administration Pantoprazole Sodium 80 mg/ 20 mls @ 420 mls/hr 01/28/21 16:52 01/28/21 17:40 Sodium Chloride IVPUSH 01/28/21 16:54 420 mls/hr ONETIME ONE Administration Ceftriaxone Sodium/Dextrose 1 50 mls @ 100 mls/hr 01/28/21 17:08 01/28/21 17:51 gm/ Premix IV 01/28/21 17:37 100 mls/hr ONETIME ONE Administration Sodium Chloride 1,000 mls @ 999 mls/hr 01/28/21 18:45 01/28/21 18:49 Normal Saline IV 01/28/21 19:45 999 mls/hr STAT ONE Administration Ceftriaxone Sodium/Dextrose 1 50 mls @ 100 mls/hr 01/28/21 19:27 01/28/21 20:11 gm/ Premix IV 01/28/21 19:56 100 mls/hr ONETIME ONE Administration Sodium Chloride 1,000 mls @ 1,000 mls/hr 01/29/21 02:24 01/29/21 02:37 Normal Saline IV 01/29/21 03:23 1,000 mls/hr .Bolus ONE Administration Sodium Chloride 1,000 mls @ 125 mls/hr 01/29/21 07:45 01/29/21 07:57 Normal Saline IV 125 mls/hr ASDIRECTED DAFNE Administration Iopamidol 100 ml 01/28/21 18:37 01/28/21 18:37 Iopamidol 755 Mg/Ml 500 Ml Multipack Bottle IVPUSH 01/28/21 18:38 100 ml ONETIME STA Administration Lorazepam 2 mg 01/28/21 18:53 01/28/21 19:05 Lorazepam 2 Mg/Ml Sdv IVPUSH 01/28/21 18:54 2 mg ONETIME ONE Administration Lorazepam 2 mg 01/29/21 02:30 01/29/21 02:37 Lorazepam 2 Mg/Ml Sdv IVPUSH 01/29/21 02:31 2 mg ONETIME ONE Administration Lorazepam 2 mg 01/29/21 09:54 01/29/21 10:11 Lorazepam 2 Mg/Ml Sdv IVPUSH 01/29/21 09:55 2 mg ONETIME ONE Administration Sepsis Event Note (ED) - Evaluation Sepsis Screening Result: No Definite Risk
--- NOTE | 2021-01-28 19:43 | CT ---
INDICATION: Abdominal pain. TECHNIQUE: CT of the abdomen and pelvis with 100 cc Isovue 370 IV contrast. Coronal and sagittal reconstructions. COMPARISON: Abdominal ultrasound 01/28/2021. FINDINGS: Cirrhotic configuration of the liver. Diffuse hepatic steatosis. There are multiple tiny low-attenuation lesions in the liver which are too small to characterize. Recanalization of the umbilical vein and paraesophageal varices. Hepatic and portal veins are patent. Probable sludge in the gallbladder. No biliary dilation. Normal spleen size. The pancreas and adrenal glands are negative. Symmetric enhancement of the kidneys. No hydronephrosis or ureteral dilation. No obstructing urinary calculi. Moderate diffuse bladder wall thickening. The prostate gland is normal in appearance. No bowel dilation. Negative appendix. No intraperitoneal free air. Large amount of ascites throughout the abdomen and pelvis. Mild diffuse body wall edema. No lymphadenopathy. Degenerative changes of the spine. Chronic appearing anterior wedging of L1. The lung bases are clear. IMPRESSION: 1. Cirrhotic liver with diffuse hepatic steatosis. 2. Findings of portal hypertension including recanalization of the umbilical vein, paraesophageal varices, and large amount of ascites. 3. Multiple tiny low-attenuation lesions in the liver are too small to characterize. Differential considerations would include cysts, regenerative nodules, or metastatic disease. This could be further evaluated with contrast enhanced MRI. 4. Moderate diffuse bladder wall thickening. Correlate with urinalysis. Please note that all CT scans at this facility use dose modulation, iterative reconstruction, and/or weight-based dosing when appropriate to reduce radiation dose to as low as reasonably achievable. Dictated by Lizeth Souza MD @ 01/28/2021 7:41:31 PM (Electronically Signed)
[2021-01-28] MEDS ORDERED: chlordiazePOXIDE 25 MG Cap PO ONE (22:48)
[2021-01-29] MEDS ORDERED: Sodium Chloride 0.9% 1,000 ML IV ONE (02:24)
[2021-01-29] MEDS ORDERED: LORazepam 2 MG/ML SDV IVPUSH ONE ×2 (02:30→09:54)
[2021-01-29 06:26] LABS: BLOOD UREA NITROGEN,BUN 7 mg/dL (7.0-18.0); CARBON DIOXIDE,CO2 18.8 mmol/L (21.0-32.0); CHLORIDE,CL 104 mmol/L (98-107); GLUCOSE RANDOM 97 mg/dL (74-106); POTASSIUM,K 3.7 mmol/L (3.5-5.1); SODIUM,NA 139 mmol/L (136-148)
[2021-01-29] MEDS ORDERED: Calcium Gluconate 10% 1 GM/10 ML SDV IVPUSH ONE (06:30)
[2021-01-29] MEDS ORDERED: Sodium Chloride 0.9% 1,000 ML IV SCH (07:45)
== END 2021-01-29 12:10 | disposition left against medical advice (07) ==
LOC: MW.ED 16:18
DX: R18.8 Other ascites (principal); K72.00 Acute and subacute hepatic failure without coma; D69.6 Thrombocytopenia, unspecified; F10.20 Alcohol dependence, uncomplicated; E87.2 Acidosis; I25.2 Old myocardial infarction; Y90.6 Blood alcohol level of 120-199 mg/100 ml; Z20.822 Contact with and (suspected) exposure to COVID-19
CPT/HCPCS: 36415; 36430; 49083; 74177; 76705; 80053; 80307; 81001; 82140; 82945; 83605; 83690; 84157; 84484; 85014; 85018; 85025; 85027; 85384; 85610; 85730; 86850; 86900; 86901; 86920; 86921; 86922; 87040; 87070; 87075; 87205; 87635; 89050; 93005; 96365; 96375; 96376; 99284; A9270; C9113; J0610; J0696; J2060; J7030; P9016; Q9967; U0002

== ENCOUNTER 2021-02-20 13:21 | Emergency (ER) | payer OTHER ==
[2021-02-20] MEDS ORDERED: Sodium Chloride 0.9% 10 ML Syringe FLUSH PRN (13:43)
[2021-02-20] MEDS ORDERED: Sodium Chloride 0.9% 2.5 ML Syringe FLUSH PRN (13:43)
--- NOTE | 2021-02-20 14:14 | EDM.PDOC ---
ED HPI GENERAL MEDICAL PROBLEM - General Chief Complaint: Abdominal Pain Stated Complaint: STOMACH PAIN Time Seen by Provider: 02/20/21 13:29 - History of Present Illness INITIAL COMMENTS - FREE TEXT/NARRATIVE: History of present illness: [] The patient complains of abdominal distention which causes him shortness of breath. He says he has had it for 2-1/2 weeks. The patient admits that he is frustrated and angry. He says the hospital and medical care personnel will do anything for him. He says "they" have scheduled a liver biopsy and are scheduled to do a paracentesis. He cannot tell me who "they" are. He says "Lasha" told him to go to [facility] because they were the only people I could do anything form so he went there today. They told him they could not do anything for him and sent him to the emergency department. He does say that this Dr. Simpson is in [place]. He says he has been seen there. He says a week ago he had a paracentesis. Review of his records here reveal that he has cirrhosis of the liver and had a lactic acidosis with liver failure on the 12th of this month. Paracentesis was done at that time. He had some degree of relief and while awaiting transfer to a facility that could more thoroughly evaluate his gastrointestinal problem with his liver disease he signed AGAINST MEDICAL ADVICE and left our department. Review of systems: As per history of present illness and below otherwise all systems reviewed and negative. Past medical history: As per history of present illness and as reviewed below otherwise noncontributory. Surgical history: As per history of present illness and as reviewed below otherwise noncontributory. Social history: No reported history of drug or alcohol abuse. Family history: As per history of present illness and as reviewed below otherwise non contributory. Physical exam: Constitutional - well developed, well-nourished and in no acute distress HEENT - normocephalic, no evidence of trauma - external nose and mouth normal - no mass in neck and no JVD - mucosae moist EYES - full EOM, PERRL, icterus noted.- no evidence of inflammation, injection, or drainage Respiratory - no respiratory distress, equal bilateral expansion, lungs clear to auscultation and no abnormal lung sounds Cardiovascular - Regular Rhythm with S1 and S2 appreciated and no murmur, gallop or rub. GI - abdomen firmly distended but not terribly tender. He has caput medusa. Musculoskeletal no gross deformity of long bones or joints - no tenderness, swelling or edema Neurologic - Alert and oriented times four - CN II-XII grossly intact - motor sensory and coordination symmetrically normal Psychiatric -normal thought content but patient is angry with appropriate affect for the circumstances. Hematologic - No petechiae or purpura - mucosa appropriate color and sclera not pale - normal nail bed color and refill Integument - no rash or evidence of trauma - normal turgor Diagnostics: [] Therapeutics: [] Impression: [] Plan: [] Definitive disposition and diagnosis as appropriate pending reevaluation and review of above. abdomen Pain Score (Numeric/FACES): 8 - Related Data Allergies Allergy/AdvReac Type Severity Reaction Status Date / Time No Known Allergies Allergy Verified 02/20/21 13:38 Home Meds: Home Meds . [No Known Home Meds] 01/28/21 [History] Past Medical History HEENT History: Reports: None Cardiovascular History: Reports: MS Respiratory History: Reports: None Gastrointestinal History: Reports: None Genitourinary History: Reports: None Musculoskeletal History: Reports: None Neurological History: Reports: None Psychiatric History: Reports: None Endocrine/Metabolic History: Reports: None Hematologic History: Reports: None Immunologic History: Reports: None Oncologic (Cancer) History: Reports: None Dermatologic History: Reports: None - Infectious Disease History Infectious Disease History: Reports: None - Past Surgical History Head Surgeries/Procedures: Reports: None HEENT Surgical History: Reports: None Cardiovascular Surgical History: Reports: None Respiratory Surgical History: Reports: None GI Surgical History: Reports: None Male Surgical History: Reports: None Endocrine Surgical History: Reports: None Neurological Surgical History: Reports: None Musculoskeletal Surgical History: Reports: None Oncologic Surgical History: Reports: None Dermatological Surgical History: Reports: None Social & Family History - Family History Family Medical History: No Pertinent Family History - Caffeine Use Caffeine Use: Reports: None - Recreational Drug Use Recreational Drug Use: No ED ROS GENERAL - Review of Systems Review Of Systems: Comprehensive ROS is negative, except as noted in HPI. ED EXAM, GENERAL - Physical Exam Exam: See Below Free Text/Narrative:: My physical exam is in the HPI Course - Vital Signs Text/Narrative:: 1525 hrs. discussed with he said that the patient will come back to very light he will do the paracentesis and arrange the biopsy. Last Recorded V/S: Last Vital Signs Temp 36.6 C 02/20/21 13:34 Pulse 100 02/20/21 14:08 Resp 20 02/20/21 13:34 BP 126/88 02/20/21 14:08 Pulse Ox 97 02/20/21 14:08 - Orders/Labs/Meds Orders: Active Orders 24 hr Category Date Time Status Sodium Chloride 0.9% [Saline Flush] Med 02/20/21 13:43 Active 10 ml FLUSH ASDIRECTED PRN Sodium Chloride 0.9% [Saline Flush] Med 02/20/21 13:43 Active 2.5 ml FLUSH ASDIRECTED PRN Saline Lock Insert [OM.PC] Stat Oth 02/20/21 13:43 Ordered Medication Orders Sodium Chloride (Sodium Chloride 0.9% 10 Ml Syringe) 10 ml FLUSH ASDIRECTED PRN PRN Reason: Keep Vein Open Last Admin: 02/20/21 13:45 Dose: 10 ml Documented by: LEXIE Sodium Chloride (Sodium Chloride 0.9% 2.5 Ml Syringe) 2.5 ml FLUSH ASDIRECTED PRN PRN Reason: Keep Vein Open Last Admin: 02/20/21 13:45 Dose: 2.5 ml Documented by: LEXIE Labs: Laboratory Tests 02/20/21 02/20/21 02/20/21 Range/Units 13:40 13:40 13:40 WBC 8.82 (4.0-11.0) K/uL RBC 3.55 L (4.50-5.90) M/uL Hgb 11.2 L (13.0-17.0) g/dL Hct 32.0 L (38.0-50.0) % MCV 90.1 (80.0-98.0) fL MCH 31.5 (27.0-32.0) pg MCHC 35.0 (31.0-37.0) g/dL RDW Std Deviation 69.3 H (28.0-62.0) fl RDW Coeff of Alex 21 H (11.0-15.0) % Plt Count 133 L (150-400) K/uL MPV 8.60 (7.40-12.00) fL Neut % (Auto) 70.0 (48.0-80.0) % Lymph % (Auto) 12.7 L (16.0-40.0) % [place] % (Auto) 12.5 (0.0-15.0) % Eos % (Auto) 3.4 (0.0-7.0) % Baso % (Auto) 1.4 (0.0-1.5) % Neut # (Auto) 6.2 H (1.4-5.7) K/uL Lymph # (Auto) 1.1 (0.6-2.4) K/uL [place] # (Auto) 1.1 H (0.0-0.8) K/uL Eos # (Auto) 0.3 (0.0-0.7) K/uL Baso # (Auto) 0.1 (0.0-0.1) K/uL Nucleated RBC % 0.0 /100WBC Nucleated RBCs # 0 K/uL INR 1.65 APTT 27.0 (18.6-31.3) SEC Sodium 130 L (136-148) mmol/L Potassium 4.8 (3.5-5.1) mmol/L Chloride 98 (98-107) mmol/L Carbon Dioxide 24.7 (21.0-32.0) mmol/L BUN 14 (7.0-18.0) mg/dL Creatinine 1.2 (0.8-1.3) mg/dL Est Cr Clr Drug Dosing 73.51 mL/min Estimated GFR (MDRD) > 60.0 ml/min Glucose 134 H (74-106) mg/dL Calcium 8.1 L (8.5-10.1) mg/dL Total Bilirubin 5.9 H (0.2-1.0) mg/dL AST 94 H (15-37) IU/L ALT 48 (14-63) IU/L Alkaline Phosphatase 112 (46-116) U/L Total Protein 7.7 (6.4-8.2) g/dL Albumin 2.2 L (3.4-5.0) g/dL Globulin 5.5 H (2.6-4.0) g/dL Albumin/Globulin Ratio 0.4 L (0.9-1.6) Lipase 426 H (73-393) U/L Meds: Medications Generic Name Dose Route Start Last Admin Trade Name Bashir PRN Reason Stop Dose Admin Sodium Chloride 10 ml 02/20/21 13:43 02/20/21 13:45 Sodium Chloride 0.9% 10 Ml Syringe FLUSH 10 ml ASDIRECTED PRN Administration Keep Vein Open Sodium Chloride 2.5 ml 02/20/21 13:43 02/20/21 13:45 Sodium Chloride 0.9% 2.5 Ml Syringe FLUSH 2.5 ml ASDIRECTED PRN Administration Keep Vein Open - Re-Assessments/Exams Free Text/Narrative Re-Assessment/Exam: 02/20/21 14:13 Called for like clinic as a first step in trying to reconstruct the sequence of events since he was seen here on the . 02/20/21 14:23 I contacted [facility] and in their emergency room the emergency physician said he saw the patient on the and his ammonia level was normal. He arrange for paracentesis. That was done on the by who planned to follow the patient at the clinic in [place]. The patient had 50 g of albumen but the total fluid withdrawn is not stated in the note. 02/20/21 14:50 Randi is not at 72 nor is he at the very light [facility] today. Departure - Departure Time of Disposition: 15:26 Disposition: Home, Self-Care 01 Condition: Good Clinical Impression: Abdominal pain, Ascites - Discharge Information Instructions: Abdominal Pain, Adult, [id number] Referrals: PCP,None [Primary Care Provider] - Hong Garcia MD [Ordering Only Provider] - Forms: ED Department Discharge Additional Instructions: told me on the phone just now that he will be at the [facility] until 5 PM and will drain the fluid from your belly and make further arrangements. [facility] [address] [place] [id number] [facility] [address] [place] [address] The following information is given to patients seen in the emergency department who are being discharged to home. This information is to outline your options for follow-up care. We provide all patients seen in our emergency department with a follow-up referral. The need for follow-up, as well as the timing and circumstances, are variable depending upon the specifics of your emergency department visit. If you don't have a primary care physician on staff, we will provide you with a referral. We always advise you to contact your personal physician following an emergency department visit to inform them of the circumstance of the visit and for follow-up with them and/or the need for any referrals to a consulting specialist. The emergency department will also refer you to a specialist when appropriate. This referral assures that you have the opportunity for follow-up care with a specialist. All of these measure are taken in an effort to provide you with optimal care, which includes your follow-up. Under all circumstances we always encourage you to contact your private physician who remains a resource for coordinating your care. When calling for follow-up care, please make the office aware that this follow-up is from your recent emergency room visit. If for any reason you are refused follow-up, please contact the [facility] Emergency Department at and asked to speak to the emergency department charge nurse. Sepsis Event Note (ED) - Evaluation Sepsis Screening Result: No Definite Risk - Focused Exam Vital Signs: Vital Signs Temp Pulse Resp BP Pulse Ox 02/20/21 14:08 100 126/88 97 02/20/21 13:34 36.6 C 112 H 20 129/83 98 - My Orders Last 24 Hours: My Active Orders 02/20/21 13:43 Sodium Chloride 0.9% [Saline Flush] 10 ml FLUSH ASDIRECTED PRN Sodium Chloride 0.9% [Saline Flush] 2.5 ml FLUSH ASDIRECTED PRN Saline Lock Insert [OM.PC] Stat - Assessment/Plan Last 24 Hours: My Active Orders 02/20/21 13:43 Sodium Chloride 0.9% [Saline Flush] 10 ml FLUSH ASDIRECTED PRN Sodium Chloride 0.9% [Saline Flush] 2.5 ml FLUSH ASDIRECTED PRN Saline Lock Insert [OM.PC] Stat
[2021-02-20 14:27] LABS: BLOOD UREA NITROGEN,BUN 14 mg/dL (7.0-18.0); CARBON DIOXIDE,CO2 24.7 mmol/L (21.0-32.0); CHLORIDE,CL 98 mmol/L (98-107); GLUCOSE RANDOM 134 mg/dL (74-106); LIPASE 426 U/L (73-393); POTASSIUM,K 4.8 mmol/L (3.5-5.1); SODIUM,NA 130 mmol/L (136-148)
== END 2021-02-20 15:54 | disposition home or self-care (01) ==
LOC: MW.ED 13:21
DX: R18.8 Other ascites (principal); I25.2 Old myocardial infarction
CPT/HCPCS: 36415; 80053; 83690; 85025; 85610; 85730; 99284

== ENCOUNTER 2021-03-04 01:07 | Emergency (ER) | payer OTHER ==
[2021-03-04] MEDS ORDERED: Sodium Chloride 0.9% 2.5 ML Syringe FLUSH PRN (01:24)
[2021-03-04] MEDS ORDERED: Ondansetron 4 MG/2 ML SDV IVPUSH ONE ×2 (01:24→04:47)
[2021-03-04] MEDS ORDERED: Sodium Chloride 0.9% 10 ML Syringe FLUSH PRN (01:24)
[2021-03-04] MEDS ORDERED: Octreotide 50 MCG/1 ML Amp IVPUSH ONE (01:28)
[2021-03-04] MEDS ORDERED: Octreotide 500 MCG in Sodium Chloride 0.9% 495 ML IV SCH ×3 (01:30→11:45)
[2021-03-04 01:49] LABS: BLOOD UREA NITROGEN,BUN 34 mg/dL (7.0-18.0); CARBON DIOXIDE,CO2 18.7 mmol/L (21.0-32.0); CHLORIDE,CL 98 mmol/L (98-107); GLUCOSE RANDOM 128 mg/dL (74-106); LIPASE 466 U/L (73-393); POTASSIUM,K 4.6 mmol/L (3.5-5.1); SODIUM,NA 129 mmol/L (136-148)
--- NOTE | 2021-03-04 02:00 | EDM.PDOC ---
<David Elder - Last Filed: 03/04/21 06:21> ED HPI GENERAL MEDICAL PROBLEM - General Chief Complaint: Abdominal Pain Stated Complaint: LIVER FAILURE Time Seen by Provider: 03/04/21 01:11 Source of Information: Reports: Patient, Family History Limitations: Reports: No Limitations - History of Present Illness INITIAL COMMENTS - FREE TEXT/NARRATIVE: 55-year-old male with history of chronic alcohol abuse, cirrhosis, portal hypertension, ascites, CAD was brought in by EMS from his home [place] after family called for abdominal distention and vomiting blood 1 hour ago. He was brought in with blood around his mouth. He also notes rectal bleeding over the past week. He was assessed here on 01/28 and had 4L taken out by paracentesis in the ED, he then signed out AGAINST MEDICAL ADVICE. HIs last alcohol drink was 8 weeks ago. ROS: A 10-point review of systems, other than pertinent positives and negatives as stated per HPI, is otherwise negative Past medical history: No additional pertinent history Past Surgical history: No additional pertinent history Social history: No additional pertinent history Family history: No additional pertinent history PHYSICAL EXAM General: AOx4, GCS = 15, angry and agitated, mild distress Skin: pale, caput medusa HEENT: dry mucous membrane, fresh blood around his mouth. Scleral icterus. Neck: supple, no meningismus, no Kernig or Brudzinski Cardiac: S1S2 tachycardia Respiratory: CTAB, no crackles or rales, no wheezing Abdomen: Soft, nontender, tense and distended Back: nontender Musculoskeletal: NVI distally, no deformity Neuro: No focal deficits Abdomen Pain Score (Numeric/FACES): 5 - Related Data Allergies Allergy/AdvReac Type Severity Reaction Status Date / Time No Known Allergies Allergy Verified 03/04/21 01:16 Home Meds: Home Meds . [No Known Home Meds] 01/28/21 [History] Past Medical History HEENT History: Reports: None Cardiovascular History: Reports: AL Respiratory History: Reports: None Gastrointestinal History: Reports: None Other Gastrointestinal History: liver failure Genitourinary History: Reports: None Musculoskeletal History: Reports: None Neurological History: Reports: None Psychiatric History: Reports: None Endocrine/Metabolic History: Reports: None Hematologic History: Reports: None Immunologic History: Reports: None Oncologic (Cancer) History: Reports: None Dermatologic History: Reports: None - Infectious Disease History Infectious Disease History: Reports: None - Past Surgical History Head Surgeries/Procedures: Reports: None HEENT Surgical History: Reports: None Cardiovascular Surgical History: Reports: None Respiratory Surgical History: Reports: None GI Surgical History: Reports: None Male Surgical History: Reports: None Endocrine Surgical History: Reports: None Neurological Surgical History: Reports: None Musculoskeletal Surgical History: Reports: None Oncologic Surgical History: Reports: None Dermatological Surgical History: Reports: None Social & Family History - Family History Family Medical History: No Pertinent Family History - Tobacco Use Tobacco Use Status *Q: Current Every Day Tobacco User Years of Tobacco use: 25 Packs/Tins Daily: 0.1 - Caffeine Use Caffeine Use: Reports: None - Recreational Drug Use Recreational Drug Use: Yes Recreational Drug Type: Reports: Marijuana/Hashish ED ROS GENERAL - Review of Systems Review Of Systems: See Below (see dictation) ED EXAM, GI/ABD - Physical Exam Exam: See Below (see dictation) ED ABDOMINAL/GI PROCEDURES - Additional/Other Procedure(s) Procedure(s) (Free Text): FAST Abdominal Ultrasound Indication: Evaluation for intra-abdominal free fluid Technique: Right upper quadrant (hepatorenal), Left upper quadrant (splenorenal) and pelvic views were obtained Findings: large amount of intra-abdominal free fluid Impression: ascites Performed and interpreted at the time of patient care, scan image(s) archived. Certified by David Elder MD #1 Interpretation EKG Interpretation Comments: Heart rate = 117 bpm, sinus tachycardia, normal QRS interval, no STEMI. EKG and rhythm strip interpreted by me at 0210 Course - Re-Assessments/Exams Free Text/Narrative Re-Assessment/Exam: 03/04/21 01:[address] Harman, he recommends transfer. Patient will require transfer to outside facility for the need of higher level of care not available at this facility, and the need for client development consultant services unavailable at this facility. Any emergency conditions have been stabilized to the ability of the ED prior to the transfer. His MELD score is 28. 03/04/21 02:08 Case was discussed with [facility], they have no ICU beds. Ordered octreotide bolus and drip, 1 unit PRBC, Protonix 40mg BID. 03/04/21 02:13 Called [facility] transfer center, they state the entire state does not have ICU beds. [facility] is diversion, [facility] capacity. [facility] is at capacity. [facility] is on diversion. 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 03/04/21 02:[address] [facility] declined transfer due to lack of capacity. [facility] in [facility] is at capacity for ICU transfers. 03/04/21 02:30 Patient was informed of the need for CT A/P so we can further delineate and manage his current presentation. He is alert/oriented x 4 with great decision making capacity. He declines to undergo CT despite my recommendation. He was warned of the potential risks of not undergoing CT, including worsening pain and , and he still elects to decline. 03/04/21 02:49 Family members notified in the waiting room of his poor prognosis. They confirm he has no advanced directive. Nurse just notified me that he is again vomiting bright red blood. 03/04/21 04:39 Hemoglobin improved to 9.2 after 1 L PRBC. 03/04/21 05:10 Patient vomited about 400cc bright red blood. Ordered 2nd unit PRBC and 1gm TXA. Called [facility] in [place], [place], all 3 campuses including [facility], [facility], and [facility] are on diversion. 03/04/21 05:41 [address] [facility] in [place], [place], all 3 campuses are on diversion. 03/04/21 05:45 Called [facility] at [place], [place] is on diversion. 03/04/21 05:47 Called [facility] transfer center at [place], [place], they are on diversion for out of state ICU transfer. 03/04/21 05:[address] transfer center, will fax over patient information over for possible transfer. 03/04/21 06:37 [facility] called back again, [facility] may have capacity later in the morning pending their patient downgrades, in which case they'd call us back to accept, otherwise no ICU beds in the entire state of [place]. 03/04/21 06:54 Case signed out to Dr. Staley Departure - Departure Time of Disposition: 02:05 Disposition: DC/Tfer to Acute Hospital 02 Condition: Critical Clinical Impression: Ascites, Cirrhosis of liver, Anemia, UGIB (upper gastrointestinal bleed), Hyponatremia, Acute renal failure, Transaminitis, Abdominal pain, Hypoalbuminemia, Lactic acidosis - Discharge Information *PRESCRIPTION DRUG MONITORING PROGRAM REVIEWED*: Not Applicable *COPY OF PRESCRIPTION DRUG MONITORING REPORT IN PATIENT RAMAN: Not Applicable Instructions: Acute Kidney Injury, Adult, Upper Gastrointestinal Bleeding, Hy ponatremia, [id number], Cirrhosis, Ascites Referrals: Zoie Zavala MD [Primary Care Provider] - 3 Days Forms: ED Department Discharge Critical Care Note - Critical Care Note Comments: CRITCAL CARE: The high probability of sudden, clinically significant deterioration in the patient's condition required the highest level of my preparedness to intervene urgently. The services I provided to this patient were to treat and/or prevent clinically significant deterioration. Services included the following: chart data review, reviewing nursing notes and/or old charts, documentation time, client development consultant collaboration regarding findings and treatment options, medication orders and management, direct patient care, vital sign assessments and ordering, interpreting and reviewing diagnostic studies/lab tests. Aggregate critical care time includes only time during which I was engaged in work directly related to the patient's care, as described above, whether at the bedside or elsewhere in the Emergency Department. It did not include time spent performing other reported procedures or the services of residents, students, nurses or physician assistants. Frequent interventions and/or frequent repeat evaluations were required as well as counseling and coordination of care re garding prognosis, treatments, and discussions with patient, staff and consultants. Critical Care (excluding other procedures): 40 minutes Sepsis Event Note (ED) - Evaluation Sepsis Screening Result: No Definite Risk <Burak Staley - Last Filed: 03/04/21 09:29> Course - Vital Signs Last Recorded V/S: Last Vital Signs Temp 96.7 F L 03/04/21 06:16 Pulse 118 H 03/04/21 06:53 Resp 14 03/04/21 06:16 BP 107/75 03/04/21 06:53 Pulse Ox 97 03/04/21 06:53 - Orders/Labs/Meds Orders: Active Orders 24 hr Category Date Time Status Cardiac Monitoring [RC] . DIRECTED Care 03/04/21 01:24 Active Verify Patient Consent Obtain [RC] ASDIRECTED Care 03/04/21 02:10 Active Vital Signs [RC] Q1H Care 03/04/21 04:40 Active DRUG SCREEN, URINE [URCHEM] Stat Lab 03/04/21 01:24 Ordered FRESH FROZEN PLASMA [BBK] Stat Lab 03/04/21 02:00 Results RED BLOOD CELLS LP [BBK] Stat Lab 03/04/21 02:00 Results TYPE AND SCREEN [BBK] Stat Lab 03/04/21 02:00 Results UA W/NENA RFLX IF INDICATED [URIN] Stat Lab 03/04/21 01:25 Ordered Lactated Ringers [Ringers, Lactated] 1,000 ml Med 03/04/21 06:54 Active IV .BOLUS Octreotide [SandoSTATIN] 500 mcg Med 03/04/21 01:30 Active Sodium Chloride 0.9% [Normal Saline] 495 ml IV Q10H Sodium Chloride 0.9% [Saline Flush] Med 03/04/21 01:24 Active 10 ml FLUSH ASDIRECTED PRN Sodium Chloride 0.9% [Saline Flush] Med 03/04/21 01:24 Active 2.5 ml FLUSH ASDIRECTED PRN Saline Lock Insert [OM.PC] Stat Ot 03/04/21 01:24 Ordered Transfuse Fresh Frozen Plasma [COMM] Stat Ot 03/04/21 07:55 Ordered Transfuse Red Blood Cells [COMM] Stat Ot 03/04/21 05:03 Ordered Medication Orders Octreotide Acetate 500 mcg/ (Sodium Chloride) 500 mls @ 50 mls/hr IV Q10H [facility] Last Admin: 03/04/21 02:26 Dose: 50 mcg/hr, 50 mls/hr Documented by: BUSTER Lactated Ringer's (Ringers, Lactated) 1,000 mls @ 125 mls/hr IV .BOLUS ONE Stop: 03/04/21 14:53 Sodium Chloride (Sodium Chloride 0.9% 10 Ml Syringe) 10 ml FLUSH ASDIRECTED PRN PRN Reason: Keep Vein Open Last Admin: 03/04/21 02:40 Dose: 10 ml Documented by: BUSTER Sodium Chloride (Sodium Chloride 0.9% 2.5 Ml Syringe) 2.5 ml FLUSH ASDIRECTED PRN PRN Reason: Keep Vein Open Last Admin: 03/04/21 02:40 Dose: 2.5 ml Documented by: BUSTER Labs: Laboratory Tests 03/04/21 03/04/21 03/04/21 Range/Units 01:20 01:23 01:23 WBC 10.35 (4.0-11.0) K/uL RBC 2.38 L (4.50-5.90) M/uL Hgb 7.6 L (13.0-17.0) g/dL Hct 22.2 L (38.0-50.0) % MCV 93.3 (80.0-98.0) fL MCH 31.9 (27.0-32.0) pg MCHC 34.2 (31.0-37.0) g/dL RDW Std Deviation 76.6 H (28.0-62.0) fl RDW Coeff of Alex 23 H (11.0-15.0) % Plt Count 135 L (150-400) K/uL MPV 8.50 (7.40-12.00) fL Neut % (Auto) 62.1 (48.0-80.0) % Lymph % (Auto) 17.8 (16.0-40.0) % Haralson % (Auto) 14.9 (0.0-15.0) % Eos % (Auto) 3.8 (0.0-7.0) % Baso % (Auto) 1.4 (0.0-1.5) % Neut # (Auto) 6.4 H (1.4-5.7) K/uL Lymph # (Auto) 1.8 (0.6-2.4) K/uL Haralson # (Auto) 1.5 H (0.0-0.8) K/uL Eos # (Auto) 0.4 (0.0-0.7) K/uL Baso # (Auto) 0.1 (0.0-0.1) K/uL Nucleated RBC % 0.0 /100WBC Nucleated RBCs # 0 K/uL INR APTT (18.6-31.3) SEC Sodium 129 L (136-148) mmol/L Potassium 4.6 (3.5-5.1) mmol/L Chloride 98 (98-107) mmol/L Carbon Dioxide 18.7 L (21.0-32.0) mmol/L BUN 34 H (7.0-18.0) mg/dL Creatinine 1.7 H (0.8-1.3) mg/dL Est Cr Clr Drug Dosing 51.89 mL/min Estimated GFR (MDRD) 42.4 ml/min Glucose 128 H (74-106) mg/dL Lactic Acid (0.4-2.0) mmol/L Calcium 7.4 L (8.5-10.1) mg/dL Phosphorus 5.0 H (2.6-4.7) mg/dL Magnesium 2.0 (1.8-2.4) mg/dL Total Bilirubin 4.3 H (0.2-1.0) mg/dL Direct Bilirubin 2.90 H (0.0-0.5) mg/dL Indirect Bilirubin 1.40 AST 63 H (15-37) IU/L ALT 32 (14-63) IU/L Alkaline Phosphatase 88 (46-116) U/L Ammonia (19-54) ug/dL Creatine Kinase 164 (26-308) U/L Troponin I < 0.050 (0.000-0.056) ng/mL Total Protein 5.9 L (6.4-8.2) g/dL Albumin 1.5 L (3.4-5.0) g/dL Globulin 4.4 H (2.6-4.0) g/dL Albumin/Globulin Ratio 0.3 L (0.9-1.6) Lipase 466 H (73-393) U/L Ethyl Alcohol < 3.0 mg/dL SARS-CoV-2 RNA (DAVID) (NEGATIVE) Blood Type Antibody Screen Crossmatch 03/04/21 03/04/21 03/04/21 Range/Units 01:23 02:00 02:00 WBC (4.0-11.0) K/uL RBC (4.50-5.90) M/uL Hgb (13.0-17.0) g/dL Hct (38.0-50.0) % MCV (80.0-98.0) fL MCH (27.0-32.0) pg MCHC (31.0-37.0) g/dL RDW Std Deviation (28.0-62.0) fl RDW Coeff of Alex (11.0-15.0) % Plt Count (150-400) K/uL MPV (7.40-12.00) fL Neut % (Auto) (48.0-80.0) % Lymph % (Auto) (16.0-40.0) % Haralson % (Auto) (0.0-15.0) % Eos % (Auto) (0.0-7.0) % Baso % (Auto) (0.0-1.5) % Neut # (Auto) (1.4-5.7) K/uL Lymph # (Auto) (0.6-2.4) K/uL Haralson # (Auto) (0.0-0.8) K/uL Eos # (Auto) (0.0-0.7) K/uL Baso # (Auto) (0.0-0.1) K/uL Nucleated RBC % /100WBC Nucleated RBCs # K/uL INR 1.78 APTT 27.1 (18.6-31.3) SEC Sodium (136-148) mmol/L Potassium (3.5-5.1) mmol/L Chloride (98-107) mmol/L Carbon Dioxide (21.0-32.0) mmol/L BUN (7.0-18.0) mg/dL Creatinine (0.8-1.3) mg/dL Est Cr Clr Drug Dosing mL/min Estimated GFR (MDRD) ml/min Glucose (74-106) mg/dL Lactic Acid 3.9 H* (0.4-2.0) mmol/L Calcium (8.5-10.1) mg/dL Phosphorus (2.6-4.7) mg/dL Magnesium (1.8-2.4) mg/dL Total Bilirubin (0.2-1.0) mg/dL Direct Bilirubin (0.0-0.5) mg/dL Indirect Bilirubin AST (15-37) IU/L ALT (14-63) IU/L Alkaline Phosphatase (46-116) U/L Ammonia (19-54) ug/dL Creatine Kinase (26-308) U/L Troponin I (0.000-0.056) ng/mL Total Protein (6.4-8.2) g/dL Albumin (3.4-5.0) g/dL Globulin (2.6-4.0) g/dL Albumin/Globulin Ratio (0.9-1.6) Lipase (73-393) U/L Ethyl Alcohol mg/dL SARS-CoV-2 RNA (DAVID) (NEGATIVE) Blood Type A POSITIVE Antibody Screen NEGATIVE Crossmatch See Detail 03/04/21 03/04/21 03/04/21 Range/Units 02:00 02:18 04:15 WBC (4.0-11.0) K/uL RBC (4.50-5.90) M/uL Hgb 9.2 L (13.0-17.0) g/dL Hct (38.0-50.0) % MCV (80.0-98.0) fL MCH (27.0-32.0) pg MCHC (31.0-37.0) g/dL RDW Std Deviation (28.0-62.0) fl RDW Coeff of Alex (11.0-15.0) % Plt Count (150-400) K/uL MPV (7.40-12.00) fL Neut % (Auto) (48.0-80.0) % Lymph % (Auto) (16.0-40.0) % Haralson % (Auto) (0.0-15.0) % Eos % (Auto) (0.0-7.0) % Baso % (Auto) (0.0-1.5) % Neut # (Auto) (1.4-5.7) K/uL Lymph # (Auto) (0.6-2.4) K/uL Haralson # (Auto) (0.0-0.8) K/uL Eos # (Auto) (0.0-0.7) K/uL Baso # (Auto) (0.0-0.1) K/uL Nucleated RBC % /100WBC Nucleated RBCs # K/uL INR APTT (18.6-31.3) SEC Sodium (136-148) mmol/L Potassium (3.5-5.1) mmol/L Chloride (98-107) mmol/L Carbon Dioxide (21.0-32.0) mmol/L BUN (7.0-18.0) mg/dL Creatinine (0.8-1.3) mg/dL Est Cr Clr Drug Dosing mL/min Estimated GFR (MDRD) ml/min Glucose (74-106) mg/dL Lactic Acid (0.4-2.0) mmol/L Calcium (8.5-10.1) mg/dL Phosphorus (2.6-4.7) mg/dL Magnesium (1.8-2.4) mg/dL Total Bilirubin (0.2-1.0) mg/dL Direct Bilirubin (0.0-0.5) mg/dL Indirect Bilirubin AST (15-37) IU/L ALT (14-63) IU/L Alkaline Phosphatase (46-116) U/L Ammonia 28 (19-54) ug/dL Creatine Kinase (26-308) U/L Troponin I (0.000-0.056) ng/mL Total Protein (6.4-8.2) g/dL Albumin (3.4-5.0) g/dL Globulin (2.6-4.0) g/dL Albumin/Globulin Ratio (0.9-1.6) Lipase (73-393) U/L Ethyl Alcohol mg/dL SARS-CoV-2 RNA (DAVID) NEGATIVE (NEGATIVE) Blood Type Antibody Screen Crossmatch 03/04/21 03/04/21 Range/Units 07:05 07:05 WBC (4.0-11.0) K/uL RBC (4.50-5.90) M/uL Hgb 9.4 L (13.0-17.0) g/dL Hct (38.0-50.0) % MCV (80.0-98.0) fL MCH (27.0-32.0) pg MCHC (31.0-37.0) g/dL RDW Std Deviation (28.0-62.0) fl RDW Coeff of Alex (11.0-15.0) % Plt Count (150-400) K/uL MPV (7.40-12.00) fL Neut % (Auto) (48.0-80.0) % Lymph % (Auto) (16.0-40.0) % Haralson % (Auto) (0.0-15.0) % Eos % (Auto) (0.0-7.0) % Baso % (Auto) (0.0-1.5) % Neut # (Auto) (1.4-5.7) K/uL Lymph # (Auto) (0.6-2.4) K/uL Haralson # (Auto) (0.0-0.8) K/uL Eos # (Auto) (0.0-0.7) K/uL Baso # (Auto) (0.0-0.1) K/uL Nucleated RBC % /100WBC Nucleated RBCs # K/uL INR APTT (18.6-31.3) SEC Sodium (136-148) mmol/L Potassium (3.5-5.1) mmol/L Chloride (98-107) mmol/L Carbon Dioxide (21.0-32.0) mmol/L BUN (7.0-18.0) mg/dL Creatinine (0.8-1.3) mg/dL Est Cr Clr Drug Dosing mL/min Estimated GFR (MDRD) ml/min Glucose (74-106) mg/dL Lactic Acid 6.2 H* (0.4-2.0) mmol/L Calcium (8.5-10.1) mg/dL Phosphorus (2.6-4.7) mg/dL Magnesium (1.8-2.4) mg/dL Total Bilirubin (0.2-1.0) mg/dL Direct Bilirubin (0.0-0.5) mg/dL Indirect Bilirubin AST (15-37) IU/L ALT (14-63) IU/L Alkaline Phosphatase (46-116) U/L Ammonia (19-54) ug/dL Creatine Kinase (26-308) U/L Troponin I (0.000-0.056) ng/mL Total Protein (6.4-8.2) g/dL Albumin (3.4-5.0) g/dL Globulin (2.6-4.0) g/dL Albumin/Globulin Ratio (0.9-1.6) Lipase (73-393) U/L Ethyl Alcohol mg/dL SARS-CoV-2 RNA (DAVID) (NEGATIVE) Blood Type Antibody Screen Crossmatch Meds: Medications Generic Name Dose Route Start Last Admin Trade Name Freq PRN Reason Stop Dose Admin Octreotide Acetate 500 mcg/ 500 mls @ 50 mls/hr 03/04/21 01:30 03/04/21 02:26 Sodium Chloride IV 50 mcg/hr Q10H DAFNE 50 mls/hr Administration 50 MCG/HR Lactated Ringer's 1,000 mls @ 125 mls/hr 03/04/21 06:54 Ringers, Lactated IV 03/04/21 14:53 .BOLUS ONE Sodium Chloride 10 ml 03/04/21 01:24 03/04/21 02:40 Sodium Chloride 0.9% 10 Ml Syringe FLUSH 10 ml ASDIRECTED PRN Administration Keep Vein Open Sodium Chloride 2.5 ml 03/04/21 01:24 03/04/21 02:40 Sodium Chloride 0.9% 2.5 Ml Syringe FLUSH 2.5 ml ASDIRECTED PRN Administration Keep Vein Open Discontinued Medications Generic Name Dose Route Start Last Admin Trade Name Freq PRN Reason Stop Dose Admin Albumin Human 37.5 gm 03/04/21 04:42 03/04/21 07:11 Albumin 25% 12.5 Gm/50 Ml Bag IV 03/04/21 04:43 Not Given ONETIME ONE Ceftriaxone Sodium/Dextrose 1 50 mls @ 100 mls/hr 03/04/21 04:51 03/04/21 05:27 gm/ Premix IV 03/04/21 05:20 100 mls/hr ONETIME ONE Administration Lactated Ringer's 1,000 mls @ 999 mls/hr 03/04/21 04:55 03/04/21 05:27 Ringers, Lactated IV 03/04/21 05:55 999 mls/hr .BOLUS ONE Administration Pantoprazole Sodium 40 mg/ 20 mls @ 420 mls/hr 03/04/21 04:55 03/04/21 05:28 Sodium Chloride IVPUSH 03/04/21 04:57 420 mls/hr BID ONE Administration Tranexamic Acid 1,000 mg/ 110 mls @ 660 mls/hr 03/04/21 05:06 03/04/21 05:34 Sodium Chloride IV 03/04/21 05:15 660 mls/hr ONETIME ONE Administration Lidocaine HCl Confirm 03/04/21 08:22 Lidocaine 1% 5 Ml Sdv Administered 03/04/21 08:23 Dose 5 ml .ROUTE .STK-MED ONE Lidocaine HCl 5 ml 03/04/21 09:06 Lidocaine 1% 5 Ml Sdv INJECT 03/04/21 09:07 ONETIME ONE Morphine Sulfate 4 mg 03/04/21 02:28 03/04/21 02:34 Morphine 4 Mg/Ml Vial IVPUSH 03/04/21 02:29 4 mg ONETIME ONE Administration Morphine Sulfate 4 mg 03/04/21 03:51 03/04/21 04:04 Morphine 4 Mg/Ml Vial IVPUSH 03/04/21 03:52 4 mg ONETIME ONE Administration Octreotide Acetate 50 mcg 03/04/21 01:28 03/04/21 02:23 Octreotide 50 Mcg/1 Ml Amp IVPUSH 03/04/21 01:29 50 mcg ONETIME ONE Administration Ondansetron HCl 4 mg 03/04/21 01:24 03/04/21 01:34 Ondansetron 4 Mg/2 Ml Sdv IVPUSH 03/04/21 01:25 4 mg ONETIME ONE Administration Ondansetron HCl 4 mg 03/04/21 04:47 03/04/21 04:54 Ondansetron 4 Mg/2 Ml Sdv IVPUSH 03/04/21 04:48 4 mg ONETIME ONE Administration - Re-Assessments/Exams Free Text/Narrative Re-Assessment/Exam: 03/04/21 08:17 [facility] call back about patient but due to patient being so unstable and DNR that they want to try to stabilize the patient. Patient is now telling his family wants to be a full code we will reverse her DNR and continue to make calls. 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 03/04/21 09:15 [facility]. 03/04/21 09:16 Patient had a central line placed by anesthesia currently getting FFP and 1 more unit of blood blood pressure has improved to the 130s patient is been stable for the past hour. Departure - Departure Time of Disposition: 09:15 Condition: Critical Sepsis Event Note (ED) - Focused Exam Vital Signs: Vital Signs Temp Pulse Resp BP Pulse Ox 03/04/21 06:53 118 H 107/75 97 03/04/21 06:16 96.7 F L 110 H 14 128/74 98 03/04/21 06:01 96.8 F L 16 121/72 97 03/04/21 05:03 113 H 108/60 98 03/04/21 04:30 105 H 123/83 03/04/21 04:06 96.8 F L 105 H 16 125/83 96 03/04/21 03:19 96.2 F L 111 H 115/62 98 03/04/21 03:04 105 H 16 118/72 97 03/04/21 02:40 115 H 104/74 96 03/04/21 02:00 112 H 119/77 03/04/21 01:12 96.4 F L 114 H 18 102/72 96 - My Orders Last 24 Hours: My Active Orders 03/04/21 02:00 FRESH FROZEN PLASMA [BBK] Stat - Assessment/Plan Last 24 Hours: My Active Orders 03/04/21 02:00 FRESH FROZEN PLASMA [BBK] Stat
[2021-03-04] MEDS ORDERED: Morphine 4 MG/ML VIAL IVPUSH ONE ×2 (02:28→03:51)
--- NOTE | 2021-03-04 02:35 | CR ---
HISTORY: Shortness of breath COMPARISON: None available FINDINGS: A portable erect AP view of the chest was obtained at 0148 hours. The lungs are clear. No focal or diffuse infiltrates are present. The heart is normal in size. The mediastinum is normal in appearance. There is a metallic plate from anterior cervical fusion. IMPRESSION: No active disease seen in the chest Dictated by Rylan Sam MD @ 03/04/2021 2:34:36 AM (Electronically Signed)
[2021-03-04] MEDS ORDERED: Albumin 25% 12.5 GM/50 ML Bag IV ONE (04:42)
[2021-03-04] MEDS ORDERED: cefTRIAXone 1 GM in Premix Bag 1 BAG IV ONE (04:51)
[2021-03-04] MEDS ORDERED: Pantoprazole 40 MG in Sodium Chloride 0.9% 20 ML IVPUSH ONE (04:55)
[2021-03-04] MEDS ORDERED: Lactated Ringers 1,000 ML IV ONE ×2 (04:55→06:54)
[2021-03-04] MEDS ORDERED: Tranexamic Acid 1,000 MG in Sodium Chloride 0.9% 100 ML IV ONE (05:06)
--- NOTE | 2021-03-04 08:53 | PCM.SN.2 ---
Central Line Insertion - Central Line Insertion Site: internal jugular (R) Prep: CDC/MBT Guidelines, Sterile Drapes, Chlorhexidine Lumen: triple Gauge: 7Fr Local Anesthesia - Lidocaine (Xylocaine): 1% Plain Local Anesthetic Volume: 5cc Ultrasound guided: No Micropuncture kit used: No CL Complications: No Secured with suture: Yes Post placement confirmation: CXR, all ports aspirated, all ports flushed Dressing applied: by provider, chlorhexidine disc used, op-site dressing
== END 2021-03-04 12:59 ==
LOC: MW.ED 01:07
DX: K92.2 Gastrointestinal hemorrhage, unspecified (principal); K74.60 Unspecified cirrhosis of liver; R18.8 Other ascites; D64.9 Anemia, unspecified; E87.1 Hypo-osmolality and hyponatremia; N17.9 Acute kidney failure, unspecified; E88.09 Other disorders of plasma-protein metabolism, not elsewhere classified; E87.2 Acidosis; R74.01 Elevation of levels of liver transaminase levels; R10.9 Unspecified abdominal pain; R00.0 Tachycardia, unspecified; I25.2 Old myocardial infarction; Z72.0 Tobacco use; Z20.822 Contact with and (suspected) exposure to COVID-19
CPT/HCPCS: 36415; 36430; 71045; 80048; 80076; 80307; 82140; 82550; 83605; 83690; 83735; 84100; 84484; 85018; 85025; 85610; 85730; 86850; 86900; 86901; 86920; 86921; 86922; 87635; 93005; 96365; 96366; 96368; 96375; 96376; 99285; C9113; J0696; J2270; J2354; J2405; J7040; J7120; P9016; P9017; 36556; U0002

== ENCOUNTER 2021-04-09 22:06 | Emergency (ER) | payer MEDICAID, OTHER ==
[2021-04-09 22:45] LABS: BLOOD UREA NITROGEN,BUN 57 mg/dL (7.0-18.0); CHLORIDE,CL 95 mmol/L (98-107); GLUCOSE RANDOM 97 mg/dL (74-106); POTASSIUM,K 4.8 mmol/L (3.5-5.1); SODIUM,NA 126 mmol/L (136-148)
--- NOTE | 2021-04-09 23:30 | CR ---
HISTORY: Chest pain COMPARISON: Portable chest from 03/04/2021 FINDINGS: A portable erect AP view of the chest was obtained at 22 41 hours. There is new mild linear density in the left lateral lung base consistent with atelectasis. The rest of the chest remains clear. The heart remains normal in size. The mediastinum is normal in appearance. Again seen is a metallic plate and anchoring screws from anterior cervical fusion. IMPRESSION: New mild linear atelectasis in the left lateral lung base. No active disease seen in the chest. Dictated by Rylan Sam MD @ 04/09/2021 11:29:03 PM (Electronically Signed)
--- NOTE | 2021-04-10 00:47 | EDM.PDOC ---
ED HPI GENERAL MEDICAL PROBLEM - General Chief Complaint: Respiratory Problem Stated Complaint: SHORT OF BREATH, RECENT HEART ATTACK Time Seen by Provider: 04/09/21 22:21 - History of Present Illness INITIAL COMMENTS - FREE TEXT/NARRATIVE: . ICHIEF COMPLAINT(S): "I need my body fluids drained." HISTORY OF PRESENT ILLNESS: This is a 56-year-old man with a past medical history of alcohol abuse, liver failure with cirrhosis and serial paracentesis, portal hypertension, CAD, and recent admission at [facility] in [place] secondary to upper GI bleed secondary to bleeding esophageal varices status post banding, hepatic encephalopathy with multiple IR paracentesis for significant ascites, thrombocytopenia who comes to the emergency department with a chief complaint of "I need my body fluids drained." The patient states that he presents to the emergency department because he "needs my body fluids drained." He states that someone at [facility] was supposed to set up drainage every 4 days however he states that they have not been scheduled. He states that his abdomen has gotten significantly distended and he denies any abdominal pain. He denies any fevers or chills, nausea, vomiting, hematemesis. He denies any melena or hematochezia. He states that he may have been put on a liver transplant list but has not heard anything about that. He states that he is experiencing fatigue and no energy and has had decreased p.o. intake for the past 2-1/2 months. He states that he has not been able to sleep. In addition he states that he is experiencing chest pain on the left side of his chest without any radiation that is intermittent but also moves around his entire body. He denies any exacerbating or relieving factors. He currently rates his pain as 4-5 out of 10. REVIEW OF SYSTEMS: Constitutional: Positive for fatigue. Denies fever, chills. Eyes: Denies eye pain Ears, Nose, Mouth, & Throat: Denies earache Cardiovascular: Denies chest pain Respiratory: Denies shortness of breath Gastrointestinal: Positive for abdominal distention denies abdominal pain, nausea, vomiting, diarrhea, hematochezia, hematemesis, bilious emesis Genitourinary: Denies hematuria Skin:Denies a rash MSK: Denies joint pain Neurological: Denies blurred vision, numbness, tingling, weakness Psychiatric: Denies depression PAST MEDICAL HISTORY: As per history of present illness and as reviewed below otherwise noncontributory. SURGICAL HISTORY: As per history of present illness and as reviewed below otherwise noncontributory. SOCIAL HISTORY: As per history of present illness and as reviewed below otherwise noncontributory. FAMILY HISTORY: As per history of present illness and as reviewed below otherwise noncontributory. EXAMINATION OF ORGAN SYSTEMS/BODY AREAS: Constitutional: Blood pressure was 132/86, heart rate 113, respiratory rate 18 with an oxygen saturation of 99% on room air. Temperature 36.0 General: Middle-aged man who does not appear to be in acute distress sitting comfortably in the stretcher Psychiatric: Appropriate mood and affect. Eyes: The patient has scleral icterus without any conjunctival erythema. ENMT: Moist mucous membranes. No pharyngeal erythema. Cardiovascular: Regular, rate, and rhythm. No gallops, murmurs, or rubs. Bilateral upper extremity pulses symmetric and intact. No peripheral edema. No JVD. Respiratory: Lungs clear to auscultation bilaterally. No wheezes, rales, or rhonchi. Gastrointestinal: Nontender, distended with positive fluid wave. No rebound or guarding. Normoactive bowel sounds Genitourinary: No suprapubic tenderness Musculoskeletal: Normal range of motion. Skin: The patient is jaundiced Neurological: Alert and oriented x4. GCS of 15 MEDICAL DECISION MAKING AND COURSE IN THE ED WITH INTERPRETATION/REVIEW OF DIAGNOSTIC STUDIES: This is a 56-year-old man with a past medical history of alcohol abuse, liver failure with cirrhosis and serial paracentesis, portal hypertension, CAD, and recent admission at [facility] in [place] secondary to upper GI bleed secondary to bleeding esophageal varices status post banding, hepatic encephalopathy with multiple IR paracentesis for significant ascites, thrombocytopenia who comes to the emergency department with increased abdominal distention, chest pain which is atypical who is mildly tachycardic but overall appears well. At this time cardiac monitoring did reveal sinus rhythm and pulse oximetry with good waveform was 99% on room air. Patient is jaundiced and does have distention on his abdomen. At this time given his admission in [facility] we will request medical records to evaluate what was completed at outside hospital. Given the patient's history of coagulopathy and need for large-volume paracentesis we will obtain labs including CBC, INR, CMP, and ammonia. The patient does have a history of hepatic encephalopathy but does not appear to be encephalopathic today and is alert and oriented without any other abnormality. We will obtain a screening EKG given the chest pain which did not reveal any acute signs of ischemia. We placed the patient on cardiac monitoring and pulse oximetry. Will obtain a troponin and a chest x-ray. I do not believe any CT is indicated at this time. I did review the patient's chart and the patient was seen on March 04, 2021 with the acute GI bleed and was transferred out acutely had evaluated the patient prior to this and the patient did require admission and transfer however after paracentesis by myself which was small volume the patient left AGAINST MEDICAL ADVICE. DDx: Ascites, SBP, liver failure, ACS Laboratory: CBC reveals a normocytic anemia with a hemoglobin of 8.8 and hematocrit of 24.9 which appears to be stable, thrombocytopenia at 106 which is decreased from prior at 135. INR is elevated at 1.64 which appears to be around the patient's baseline. The patient in addition has a CMP showing hyponatremia at 126 which is worse from prior, hypochloremia at 95, metabolic acidosis with a bicarbonate of 19, acute kidney injury with a BUN of 57 and a creatinine of 2.0 with a GFR of 35. Hypocalcemia 8.2, hyperbilirubinemia of 5.3, mild elevation in AST at 79 and alkaline phosphatase at 123. The patient is hypoalbuminemic at 2.3. Troponin is negative. Ammonia is normal. Covid is negative. The patient did provide verbal consent for medical record release from [facility]. On review of the medical records the patient was seen by reamer hand Dr. Weiner, hospitalist Dr. Ray, and IR physician Dr. Saenz. During his admission at [facility] from March 04, 2021 to March 11 2021 the patient had acute blood loss anemia secondary to bleeding esophageal varices with an EGD showing esophageal varices requiring variceal banding, reflux esophagitis without any evidence of varices in the stomach or duodenum. The patient did require blood transfusion during that time. The patient did have hepatic encephalopathy for which he received lactulose and rifaximin and IR was consulted and they completed 2 large-volume paracentesis during his admission. The patient did have an acute kidney injury at this time and they also had superficial thrombophlebitis of the left cephalic vein. The patient left AGAINST MEDICAL ADVICE after 5 days. Given that the patient has worsening kidney function, coagulopathy, worsening hyponatremia, and need for large-volume paracentesis given his recent admission, and a meld score of 30 with an estimated mortality rate in 90 days of 27 to 32% I did discuss transfer to tertiary care center for admission as we do not have the specialties needed to appropriately care for this patient here at [facility]. The patient was amenable to transfer to [facility] in [place] however refused to be transferred anywhere else. Given his continued decompensation I do not believe I can safely do a paracentesis and ensure transfer, the patient does need to be transferred to a higher level of care. I contacted [facility] in [place] and at this time they do not have any ICU or medical surgical beds available. I did have a discussion with the patient regarding this and I will contact [facility] in [place] for repeat admission if the patient is amenable to transfer at this time. The patient states that he does not want to be transferred and would rather drive to my not on Wednesday. I did again encourage the patient to be transferred for further work-up and hopeful specialty evaluation for acute management and outpatient follow-up. The patient was adamant that he does not want to be transferred or admitted at this time. The patient was apprised of the potential risks of leaving the hospital AGAINST MEDICAL ADVICE. They include serious complications, permanent disability, and . At the time of my interview with the patient, the patient was alert, oriented, and capable. I urged the patient to return to the hospital as soon as possible to complete their evaluation and treatment. DISPOSITION: The patient left AGAINST MEDICAL ADVICE CONDITION: Serious PROCEDURES: Cardiac monitoring interpretation, pulse oximetry interpretation FINAL IMPRESSION(S)/DIAGNOSES: 1. Acute abdominal distention secondary to ascites secondary to alcoholic cirrhosis 2. Acute kidney injury 3. Acute worsening thrombocytopenia 4. Acute hyponatremia 5. Acute metabolic acidosis 6. Acute chest pain 7. Coagulopathy secondary to liver failure Michele Mejia M.D. Left Abdominal Pain Score (Numeric/FACES): 8 - Related Data Allergies Allergy/AdvReac Type Severity Reaction Status Date / Time No Known Allergies Allergy Verified 04/09/21 22:12 Home Meds: Home Meds . [No Known Home Meds] 01/28/21 [History] Past Medical History HEENT History: Reports: None Cardiovascular History: Reports: DC Respiratory History: Reports: None Gastrointestinal History: Reports: None Other Gastrointestinal History: liver failure Genitourinary History: Reports: None Musculoskeletal History: Reports: None Neurological History: Reports: None Psychiatric History: Reports: None Endocrine/Metabolic History: Reports: None Hematologic History: Reports: None Immunologic History: Reports: None Oncologic (Cancer) History: Reports: None Dermatologic History: Reports: None - Infectious Disease History Infectious Disease History: Reports: None - Past Surgical History Head Surgeries/Procedures: Reports: None HEENT Surgical History: Reports: None Cardiovascular Surgical History: Reports: None Respiratory Surgical History: Reports: None GI Surgical History: Reports: None Male Surgical History: Reports: None Endocrine Surgical History: Reports: None Neurological Surgical History: Reports: None Musculoskeletal Surgical History: Reports: None Oncologic Surgical History: Reports: None Dermatological Surgical History: Reports: None Social & Family History - Family History Family Medical History: No Pertinent Family History - Tobacco Use Tobacco Use Status *Q: Current Every Day Tobacco User Years of Tobacco use: 20 Packs/Tins Daily: 1 - Caffeine Use Caffeine Use: Reports: Coffee - Recreational Drug Use Recreational Drug Use: Yes Recreational Drug Type: Reports: Marijuana/Hashish ED ROS GENERAL - Review of Systems Review Of Systems: See Below ED EXAM, GENERAL - Physical Exam Exam: See Below Course - Vital Signs Last Recorded V/S: Last Vital Signs Temp 36.0 C L 04/09/21 22:12 Pulse 96 04/10/21 00:00 Resp 20 04/10/21 00:00 BP 107/75 04/10/21 00:00 Pulse Ox 99 04/10/21 00:00 - Orders/Labs/Meds Labs: Laboratory Tests 04/09/21 04/09/21 04/09/21 Range/Units 22:15 22:15 22:15 WBC 8.73 (4.0-11.0) K/uL RBC 2.65 L (4.50-5.90) M/uL Hgb 8.8 L (13.0-17.0) g/dL Hct 24.9 L (38.0-50.0) % MCV 94.0 (80.0-98.0) fL MCH 33.2 H (27.0-32.0) pg MCHC 35.3 (31.0-37.0) g/dL RDW Std Deviation 60.6 (28.0-62.0) fl RDW Coeff of Alex 18 H (11.0-15.0) % Plt Count 106 L (150-400) K/uL MPV 9.60 (7.40-12.00) fL Neut % (Auto) 69.8 (48.0-80.0) % Lymph % (Auto) 10.1 L (16.0-40.0) % [place] % (Auto) 15.2 H (0.0-15.0) % Eos % (Auto) 3.9 (0.0-7.0) % Baso % (Auto) 1.0 (0.0-1.5) % Neut # (Auto) 6.1 H (1.4-5.7) K/uL Lymph # (Auto) 0.9 (0.6-2.4) K/uL [place] # (Auto) 1.3 H (0.0-0.8) K/uL Eos # (Auto) 0.3 (0.0-0.7) K/uL Baso # (Auto) 0.1 (0.0-0.1) K/uL Nucleated RBC % 0.0 /100WBC Nucleated RBCs # 0 K/uL INR 1.64 Sodium 126 L (136-148) mmol/L Potassium 4.8 (3.5-5.1) mmol/L Chloride 95 L (98-107) mmol/L Carbon Dioxide 19.0 L (21.0-32.0) mmol/L BUN 57 H (7.0-18.0) mg/dL Creatinine 2.0 H (0.8-1.3) mg/dL Est Cr Clr Drug Dosing 43.60 mL/min Estimated GFR (MDRD) 35.0 ml/min Glucose 97 (74-106) mg/dL Calcium 8.2 L (8.5-10.1) mg/dL Total Bilirubin 5.3 H (0.2-1.0) mg/dL AST 79 H (15-37) IU/L ALT 46 (14-63) IU/L Alkaline Phosphatase 123 H (46-116) U/L Ammonia (19-54) ug/dL Troponin I < 0.050 (0.000-0.056) ng/mL Total Protein 6.6 (6.4-8.2) g/dL Albumin 2.3 L (3.4-5.0) g/dL Globulin 4.3 H (2.6-4.0) g/dL Albumin/Globulin Ratio 0.5 L (0.9-1.6) SARS-CoV-2 RNA (DAVID) (NEGATIVE) 04/09/21 04/09/21 Range/Units 22:15 22:21 WBC (4.0-11.0) K/uL RBC (4.50-5.90) M/uL Hgb (13.0-17.0) g/dL Hct (38.0-50.0) % MCV (80.0-98.0) fL MCH (27.0-32.0) pg MCHC (31.0-37.0) g/dL RDW Std Deviation (28.0-62.0) fl RDW Coeff of Alex (11.0-15.0) % Plt Count (150-400) K/uL MPV (7.40-12.00) fL Neut % (Auto) (48.0-80.0) % Lymph % (Auto) (16.0-40.0) % [place] % (Auto) (0.0-15.0) % Eos % (Auto) (0.0-7.0) % Baso % (Auto) (0.0-1.5) % Neut # (Auto) (1.4-5.7) K/uL Lymph # (Auto) (0.6-2.4) K/uL [place] # (Auto) (0.0-0.8) K/uL Eos # (Auto) (0.0-0.7) K/uL Baso # (Auto) (0.0-0.1) K/uL Nucleated RBC % /100WBC Nucleated RBCs # K/uL INR Sodium (136-148) mmol/L Potassium (3.5-5.1) mmol/L Chloride (98-107) mmol/L Carbon Dioxide (21.0-32.0) mmol/L BUN (7.0-18.0) mg/dL Creatinine (0.8-1.3) mg/dL Est Cr Clr Drug Dosing mL/min Estimated GFR (MDRD) ml/min Glucose (74-106) mg/dL Calcium (8.5-10.1) mg/dL Total Bilirubin (0.2-1.0) mg/dL AST (15-37) IU/L ALT (14-63) IU/L Alkaline Phosphatase (46-116) U/L Ammonia 35 (19-54) ug/dL Troponin I (0.000-0.056) ng/mL Total Protein (6.4-8.2) g/dL Albumin (3.4-5.0) g/dL Globulin (2.6-4.0) g/dL Albumin/Globulin Ratio (0.9-1.6) SARS-CoV-2 RNA (DAVID) NEGATIVE (NEGATIVE) Departure - Departure Time of Disposition: 00:46 Disposition: Against Medical Advice 07 Condition: Serious Clinical Impression: Ascites, Coagulopathy, HAFSA (acute kidney injury) - Discharge Information Instructions: Acute Kidney Injury, Adult, Liver Failure, Cirrhosis, Ascites Referrals: PCP,None [Primary Care Provider] - Forms: ED Department Discharge Additional Instructions: You were evaluated today on an emergent basis. At this time you did not want to be transferred for admission. I did recommend that you be transferred given that she working to require large volumes of removal given your abdominal distention and further work-up. In addition your kidneys seem to be worsening and I do believe that you require intensive care and evaluation by desktop administrator and liver specialist and GI specialist. I recommend you return to the emergency department as soon as possible for transfer. If not please follow-up with your primary care physician tomorrow morning. The patient was apprised of the potential risks of leaving the hospital AGAINST MEDICAL ADVICE. They include serious complications, permanent disability, and . At the time of my interview with the patient, the patient was alert, oriented, and capable. I urged the patient to return to the hospital as soon as possible to complete their evaluation and treatment. [facility] [address] [place] [id number] [id number] The patient is informed of any results of their evaluation and diagnostic workup and all questions are answered. They are given discharge instructions and return precautions. The patient is stable for discharge. The patient states they understand and agree with the plan and that they will return if their symptoms get worse or if they have any new concerns. The following information is given to patients seen in the emergency department who are being discharged to home. This information is to outline your options for follow-up care. We provide all patients seen in our emergency department with a follow-up referral. The need for follow-up, as well as the timing and circumstances, are variable depending upon the specifics of your emergency department visit. If you don't have a primary care physician on staff, we will provide you with a referral. We always advise you to contact your personal physician following an emergency department visit to inform them of the circumstance of the visit and for follow-up with them and/or the need for any referrals to a consulting specialist. The emergency department will also refer you to a specialist when appropriate. This referral assures that you have the opportunity for follow-up care with a s pecialist. All of these measure are taken in an effort to provide you with optimal care, which includes your follow-up. Under all circumstances we always encourage you to contact your private physici an who remains a resource for coordinating your care. When calling for follow-up care, please make the office aware that this follow-up is from your recent emergency room visit. If for any reason you are refused follow-up, please contact the [facility] Emergency Department at and asked to speak to the emergency department charge nurse. Sepsis Event Note (ED) - Evaluation Sepsis Screening Result: No Definite Risk - Focused Exam Vital Signs: Vital Signs Temp Pulse Resp BP Pulse Ox 04/10/21 00:00 96 20 107/75 99 04/09/21 23:00 99 18 123/83 99 04/09/21 22:12 36.0 C L 113 H 18 132/86 99
--- NOTE | 2021-04-10 01:03 | PCM.EKG ---
#1 Interpretation EKG Date: 04/09/21 Time: 22:09 Rhythm: NSR Rate (Beats/Min): 105 [place]: Normal P-Wave: Present QRS: Normal ST-T: Normal QT: Normal Comparison: No Change (03/04/21) EKG Interpretation Comments: Sinus Tachycardia
== END 2021-04-10 00:40 | disposition left against medical advice (07) ==
LOC: MW.ED 22:06
DX: K70.31 Alcoholic cirrhosis of liver with ascites (principal); R14.0 Abdominal distension (gaseous); N17.9 Acute kidney failure, unspecified; R07.9 Chest pain, unspecified; K72.90 Hepatic failure, unspecified without coma; D69.6 Thrombocytopenia, unspecified; E87.1 Hypo-osmolality and hyponatremia; E87.2 Acidosis; I25.2 Old myocardial infarction; I25.10 Atherosclerotic heart disease of native coronary artery without angina pectoris; Z72.0 Tobacco use; Z79.01 Long term (current) use of anticoagulants; Z20.822 Contact with and (suspected) exposure to COVID-19
CPT/HCPCS: 36415; 71045; 71045-26; 80053; 82140; 84484; 85025; 85610; 93005; 99285; 99285-25; U0002